=== PATIENT | female | born 2000 | race Caucasian/White ===

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

== ENCOUNTER 2023-11-04 13:58 | Emergency (ER) | payer SELFPAY ==
--- OUTSIDE RECORDS SUMMARY | 2023-11-04 14:03 | XMS REPORT | Continuity of Care Document ---
Author Name Unknown Address [address] [facility] [address] [place] [address] [facility] thconnect Address [address] [facility] [address] [place] [address] Care Team Providers Care Therapeutic Case Manager Name Role Phone Pcp, Patient Does Not Have A Primary Care Physic janie Hearingtest Attending Clinician Unavailable Shield Attending Clinician Unavailable Surinder BRISENO Attending Clinician Unavailable Jonathan PAC K Janessa Attending Clinician [phone] UNKNOWN, ATTENDING Attending Clinician Unavailab LAMONT Watts Attending Clinician Unavailable Lamont Flores MD Attending Clinician TAMMI MCDONOUGH Attending Clinician Unavailable Tammi Mcdonough MD Attending Clinician [phone] Doctor Unassigned, [place] Attending Clinician U Chuy Combs MD S Attending Clinician Leatha Cortes DO S Attending Clinician Lab, Ang - Db Attending Clinician Unavailable VALENTE ZHANG Attending Clinician Unavaila ble TRITSCHLER, CHERYAL Attending Clinician Unavaila ble Ultrasound, Ang-Mfm Attending Clinician Unavaila jo-ann Garcia MD, Karon Steel Attending Clinician + KARON GARCIA Attending Clinician Johnathon Burton MD, Yessi Giordano Attending Clinician [phone] YESSI BURTON Attending Clinician Unavailable 2, [facility] Attending Clinician Unavailable ALMA LOPEZ Attending Clinician Unavailable Alma Saez Attending Clinician [phone] JASS LEE Attending Clinician Unavaila jo-ann Lee ACNPJass Attending Clinician + [phone] RIA STEINER Attending Clinician Unavailab Ria Cardoso DO Attending Clinician [phone] SINDY NAVAS Attending Clinician Unavailable Sindy Mckay Attending Clinician [phone] Pob, [facility] Main Attending Clinician UnavailJovita Amras RN Attending Clinician Unavailable Only, Ang Db Test Attending Clinician UnavailBibiana King MD Attending Clinician [phone] BIBIANA ANN Attending Clinician Unavailable Fer Leslie MD Attending Clinician [phone] Nahum Montana CRNA Attending Clinician [phone] Suhail Thompson MD Attending Clinicia n Only, Adc Test Attending Clinician Unavailable Ultrasound, Adc Mfm Attending Clinician Unavaila Adrienne Pace MD Attending Clinician [phone] Akinsipe WHCNPNataliia Attending Clinician + Lab, Adc Fam Pob I Attending Clinician Unavailab Ceci Kunz Attending Clinician [phone] FER LESLIE Admitting Clinician Unavailable Hearingtest Admitting Clinician Unavailable Shield Admitting Clinician Unavailable LAMONT FLORES Admitting Clinician Unavailable TAMMI MCDONOUGH Admitting Clinician Unavailable Tammi Mcdonough MD Admitting Clinician [phone] ALMA LOPEZ Admitting Clinician Unavailable Leslie MD, Fer Cam Admitting Clinician [phone] Payers Payer Name Policy Type Policy Number Effective Date Expirati on Date Source [facility] SHE [id number] 2020 00:00:00 YORDAN JAVIER Akosha [id number] MEDICAID [facility] [id number] 2020 00:00:00 [employer] MEDICAID [id number] 2017 00:00:00 Problems Condition Name Condition Details Condition Category Status Onset Date Resolution Date Last Treatment Date Treating Clinician Comments Source Encounter for induction of labor Encounter for induction of labor Disease Active 08-13 00:00: 00 [facility] Liveborn , of [place] , born in hospital by vaginal delivery Liveborn , of [place] , born in hospital by vaginal delivery Disease Active 08-13 00:00: 00 [facility] Anemia affecting Anemia affecting Disease Active 08-13 00:00: 00 [facility] Choroid plexus cyst of fetus in bassett Choroid plexus cyst of fetus in bassett Disease Active 2021-06 0-06 00:00: 00 [facility] Low lying placenta nos or without hemorrhage , second trimester Low lying placenta nos or without hemorrhage , second trimester Disease Active 2021-06 0-06 00:00: 00 [facility] High-risk in third trimester High-risk in third trimester Disease Active 8-30 00:00: 00 [facility] 39 weeks gestation of 39 weeks gestation of Disease Active 2019-06 0-29 00:00: 00 [facility] No known active problems No known active problems Disease [facility] Allergies, Adverse Reactions, Alerts Allergy Name Allergy Type Status Severity Reaction(s) Onset Date Inactive Date Treating Clinician Comments Source NO KNOWN ALLERGIE S Drug Class Active [facility] Social History Social Habit Start Date Stop Date Quantity Comments Source ASSERTION 2021-11-25 00:00:00 [facility] 2023-06-18 00:00:00 2023-06-18 00:00:00 Current non-drinker of alcohol (finding) [facility] Exposure to SARS-CoV-2 (event) 2022-08-29 00:00:00 2022-09-08 13:03:00 Not sure [facility] Tobacco use and exposure 2022-01-12 00:00:00 2022-01-12 00:00:00 Smokeless tobacco non-user [facility] History of Social function 2020-12-19 00:00:00 2020-12-19 00:00:00 [facility] Sex Assigned At 2000 00:00:00 2000 00:00:00 [facility] Smoking Status Start Date Stop Date Source Never Smoker [facility] Medications Ordered Medication Name Filled Medication Name Start Date Stop Date Current Medication? Ordering Clinician Indication Dosage Frequency Signature (SIG) Comments Components Source amoxicillin amoxicillin 2022-06 00:00: 00 No amoxicilli n [facility] amoxicillin amoxicillin 2022-06 00:00: 00 No amoxicilli n [facility] amoxicillin (TRIMOX) capsule 500 mg 2022-06 21:30: 00 06-18 21:41 :00 No 500mg 500 mg, Oral, ONCE, 1 dose, On 06/18/23 at 1530, ELVIS
Re ason for Anti-Infec tive: Documented Infection< br>Documen noa Infection Site: HEENT
D uration of Therapy: 10 days [facility] amoxicillin 500 mg capsule 2022-06 00:00: 00 06-29 05:59 :00 No [id number] 500mg Take 1 capsule by mouth in the morning and 1 capsule at noon and 1 capsule in the evening. Do all this for 10 days. [facility] naproxen sodium 550 mg tablet 12-02 00:00: 00 Yes [id number] 550mg Take 1 tablet by mouth in the morning and 1 tablet in the evening. Take with meals. [facility] vits62/FA/o m3/dha/epa ( GUMMY ORAL) 08-14 12:22: 35 08-14 00:00 :00 No Take by mouth. [facility] vitamin w/FA tablet 08-14 00:00: 00 Yes [id number] 1{tbl} Take 1 tablet by mouth in the morning. [facility] docusate 100 mg capsule 08-14 00:00: 00 Yes [id number] 200mg Take 2 capsules by mouth once daily as needed for Constipati on. [facility] ferrous sulfate 325 mg (65 mg iron) tablet 08-14 00:00: 00 Yes [id number] 325mg Take 1 tablet by mouth in the morning and 1 tablet in the evening. [facility] vitamin w/FA tablet 08-14 00:00: 00 Yes [id number] 1{tbl} Take 1 tablet by mouth in the morning. [facility] HYDROcodone -acetaminop hen (NORCO 5) 5-325 mg tablet 1 tablet 08-13 18:08: 53 Yes 1{tbl} 1 tablet, Oral, Q6HPRN, Starting on Tue08/13/22 at 1208, Until Discontinu ed, Routine, Pain (scale 7-10) [facility] acetaminoph en (TYLENOL) tablet 650 mg 08-13 18:08: 53 Yes 650mg 650 mg, Oral, Q6HPRN, Starting on Tue08/13/22 at 1208, Until Discontinu ed, Routine, Pain (scale 1-3) [facility] diphenhydrA MINE (BENADRYL) tablet 25 mg 08-13 18:08: 53 Yes 25mg 25 mg, Oral, Q6HPRN, Starting on Tue08/13/22 at 1208, Until Discontinu ed, Routine, Sleep, Itching [facility] ondansetron (ZOFRAN (PF)) injection 4 mg 08-13 18:08: 53 Yes 4mg 4 mg, Slow IV Push, Q8HPRN, Starting on Tue08/13/22 at 1208, Until Discontinu ed, Routine, Nausea and Vomiting (N/V) [facility] simethicone (GAS RELIEF (SIMETHICON E)) chewable tablet 160 mg 08-13 18:08: 53 Yes 160mg 160 mg, Oral, PC+HSPRN, Starting on Tue08/13/22 at 1208, Until Discontinu ed, Routine, Gas [facility] docusate (COLACE) capsule 200 mg 08-13 18:08: 52 Yes 200mg 200 mg, Oral, QDAILYPRN, Starting on Tue08/13/22 at 1208, Until Discontinu ed, Routine, Constipati on [facility] magnesium hydroxide (MILK OF MAGNESIA) 400 mg/5 mL suspension 30 mL 08-13 18:08: 52 Yes 30mL 30 mL, Oral, QDAILYPRN, Starting on Tue08/13/22 at 1208, Until Discontinu ed, Routine, Constipati on [facility] benzocaine- menthol (DERMOPLAST ) 20-0.5 % topical spray 08-13 18:08: 52 Yes Topical, PRN, Starting on Tue08/13/22 at 1208, Until Discontinu ed, Routine, Perineum discomfort [facility] PIB fentaNYL-ro pivacaine 2 mcg/mL-0.1 % (PF) in NS 200 mL epidural infusion RTU 08-13 13:20: 00 Yes Epidural, CONTINUOUS PRN, Starting on Tue08/13/22 at 0720, Until Discontinu ed, Routine, Intra-op [facility] lidocaine 1% (XYLOCAINE) 100 mg/10 mL (1 %) injection 08-13 13:02: 00 Yes Infiltrati on, ONCE INTRA PROCEDURE, Starting on Tue08/13/22 at 0702, Until Discontinu ed, Routine, Intra-op [facility] ondansetron (ZOFRAN (PF)) injection 4 mg 08-13 07:37: 19 08-13 18:10 :15 No 4mg 4 mg, Slow IV Push, Q6HPRN, Starting on Tue08/13/22 at 0137, Until Tue08/13/22 at 1210, Routine, Nausea and Vomiting (N/V) [facility] FENTanyl PF (SUBLIMAZE (PF)) injection 100 mcg 08-13 07:37: 19 08-13 18:10 :15 No 100ug 100 mcg, Slow IV Push, Q1HPRN, Starting on Tue08/13/22 at 0137, Until Tue08/13/22 at 1210, Routine, Pain (scale 4-6), Pain (scale 7-10) [facility] oxytocin (PITOCIN) 30 units in NS 500 mL IV infusion 08-13 07:37: 19 08-13 18:10 :15 No 2mU/min at 2-40 mL/hr, IV Infusion, TITRATE, Starting on Tue08/13/22 at 0137, Until Tue08/13/22 at 1210, ELVIS [facility] lactated ringers IV infusion 500 mL 08-13 07:37: 19 08-13 18:10 :15 No 500mL at 999 mL/hr, 500 mL, IV Infusion, PRN - SEE INSTRUCTIO NS, Starting on Tue08/13/22 at 0137, Until Tue08/13/22 at 1210, Routine [facility] D5W-LR IV infusion 1,000 mL 08-13 07:37: 19 08-13 18:10 :15 No 1000mL at 1-125 mL/hr, IV Infusion, TITRATE, Starting on Tue08/13/22 at 0137, Until Tue08/13/22 at 1210, Routine [facility] vits62/FA/o m3/dha/epa ( GUMMY ORAL) 08-13 06:18: 15 Yes Take by mouth. [facility] ferrous sulfate 325 mg (65 mg iron) tablet 08-01 00:00: 00 08-14 00:00 :00 No [id number] 325mg Take 1 tablet by mouth in the morning and 1 tablet in the evening. [facility] Nitrofurant oin&Nit. Macrocryst 100 mg capsule 01-15 00:00: 00 02-23 00:00 :00 No [id number] 100mg Take 1 capsule by mouth in the morning and 1 capsule in the evening. [facility] proMETHazin e 12.5 mg tablet 01-12 00:00: 00 Yes [id number] 12.5mg Take 1 tablet by mouth every 4 (four) hours as needed for Nausea and Vomiting (N/V). [facility] ondansetron 4 mg disintegrat ing tablet 7- 00:00: 00 Yes [id number] 4mg Take 1 tablet by mouth every 8 (eight) hours as needed for Nausea and Vomiting (N/V). [facility] cephALEXin 500 mg tablet 12-11 00:00: 00 01-12 00:00 :00 No [id number] 500mg Take 1 tablet by mouth 2 (two) times daily. [facility] hydrocortis one 1 % cream 15 00:00: 00 01-12 00:00 :00 No [id number] Apply to affected area(s) 2 (two) times daily. [facility] vits62/FA/o m3/dha/epa ( GUMMY ORAL) 1-13 16:08: 30 Yes Take by mouth. [facility] ibuprofen 600 mg tablet TAKE 1 TABLET BY MOUTH EVERY 6 HOURS NEEDED FOR MODERATE PAIN ibuprofen 600 mg tablet TAKE 1 TABLET BY MOUTH EVERY 6 HOURS NEEDED FOR MODERATE PAIN No ibuprofen 600 mg tablet TAKE 1 TABLET BY MOUTH EVERY 6 HOURS NEEDED FOR MODERATE PAIN [facility] ibuprofen 600 mg tablet TAKE 1 TABLET BY MOUTH EVERY 6 HOURS NEEDED FOR MODERATE PAIN ibuprofen 600 mg tablet TAKE 1 TABLET BY MOUTH EVERY 6 HOURS NEEDED FOR MODERATE PAIN No ibuprofen 600 mg tablet TAKE 1 TABLET BY MOUTH EVERY 6 HOURS NEEDED FOR MODERATE PAIN [facility] Immunizations Ordered Immunization Name Filled Immunization Name Date Status Comments Source TD 2022-06-15 00:00:00 Completed [facility] TDAP 2022-06-15 00:00:00 Completed [facility] TDAP 2022-06-15 00:00:00 Completed [facility] TDAP 2022-06-15 00:00:00 Completed [facility] TDAP 2022-06-15 00:00:00 Completed [facility] TDAP 2022-06-15 00:00:00 Completed [facility] TDAP 2022-06-15 00:00:00 Completed [facility] TDAP 2022-06-15 00:00:00 Completed [facility] TDAP 2022-06-15 00:00:00 Completed [facility] TDAP 2022-06-15 00:00:00 Completed [facility] TDAP 2022-06-15 00:00:00 Completed [facility] TDAP 2022-06-15 00:00:00 Completed [facility] TDAP 2022-06-15 00:00:00 Completed [facility] TDAP 2022-06-15 00:00:00 Completed [facility] TDAP 2022-06-15 00:00:00 Completed [facility] TDAP 2022-06-15 00:00:00 Completed [facility] TDAP 2022-06-15 00:00:00 Completed [facility] TDAP 2022-06-15 00:00:00 Completed [facility] TDAP 2022-06-15 00:00:00 Completed [facility] TDAP 2022-06-15 00:00:00 Completed [facility] TDAP 2022-06-15 00:00:00 Completed [facility] TDAP 2022-06-15 00:00:00 Completed [facility] Influenza Virus Vaccine Quad IM, Preserv and ABX Free 6 MO-64 YRS 2022-04-01 00:00:00 Completed [facility] Influenza Virus Vaccine Quad IM, Preserv and ABX Free 6 MO-64 YRS 2022-04-01 00:00:00 Completed [facility] Influenza Virus Vaccine Quad IM, Preserv and ABX Free 6 MO-64 YRS 2022-04-01 00:00:00 Completed [facility] Influenza Virus Vaccine Quad IM, Preserv and ABX Free 6 MO-64 YRS 2022-04-01 00:00:00 Completed [facility] Influenza Virus Vaccine Quad IM, Preserv and ABX Free 6 MO-64 YRS 2022-04-01 00:00:00 Completed [facility] Influenza Virus Vaccine Quad IM, Preserv and ABX Free 6 MO-64 YRS 2022-04-01 00:00:00 Completed [facility] Influenza Virus Vaccine Quad IM, Preserv and ABX Free 6 MO-64 YRS 2022-04-01 00:00:00 Completed [facility] Influenza Virus Vaccine Quad IM, Preserv and ABX Free 6 MO-64 YRS 2022-04-01 00:00:00 Completed [facility] Influenza Virus Vaccine Quad IM, Preserv and ABX Free 6 MO-64 YRS 2022-04-01 00:00:00 Completed [facility] Influenza Virus Vaccine Quad IM, Preserv and ABX Free 6 MO-64 YRS 2022-04-01 00:00:00 Completed [facility] Influenza Virus Vaccine Quad IM, Preserv and ABX Free 6 MO-64 YRS 2022-04-01 00:00:00 Completed [facility] Influenza Virus Vaccine Quad IM, Preserv and ABX Free 6 MO-64 YRS 2022-04-01 00:00:00 Completed [facility] Influenza Virus Vaccine Quad IM, Preserv and ABX Free 6 MO-64 YRS 2022-04-01 00:00:00 Completed [facility] Influenza Virus Vaccine Quad IM, Preserv and ABX Free 6 MO-64 YRS 2022-04-01 00:00:00 Completed [facility] Influenza Virus Vaccine Quad IM, Preserv and ABX Free 6 MO-64 YRS 2022-04-01 00:00:00 Completed [facility] Influenza Virus Vaccine Quad IM, Preserv and ABX Free 6 MO-64 YRS 2022-04-01 00:00:00 Completed [facility] Influenza Virus Vaccine Quad IM, Preserv and ABX Free 6 MO-64 YRS 2022-04-01 00:00:00 Completed [facility] Influenza Virus Vaccine Quad IM, Preserv and ABX Free 6 MO-64 YRS 2022-04-01 00:00:00 Completed [facility] Influenza Virus Vaccine Quad IM, Preserv and ABX Free 6 MO-64 YRS 2022-04-01 00:00:00 Completed [facility] Influenza Virus Vaccine Quad IM, Preserv and ABX Free 6 MO-64 YRS 2022-04-01 00:00:00 Completed [facility] Influenza Virus Vaccine Quad IM, Preserv and ABX Free 6 MO-64 YRS 2022-04-01 00:00:00 Completed [facility] Influenza Virus Vaccine Quad IM, Preserv and ABX Free 6 MO-64 YRS 2022-04-01 00:00:00 Completed [facility] Influenza Virus Vaccine Quad IM, Preserv and ABX Free 6 MO-64 YRS 2022-04-01 00:00:00 Completed [facility] Influenza Virus Vaccine Quad IM, Preserv and ABX Free 6 MO-64 YRS 2022-04-01 00:00:00 Completed [facility] Influenza Virus Vaccine Quad IM, Preserv and ABX Free 6 MO-64 YRS 2022-04-01 00:00:00 Completed [facility] Influenza Virus Vaccine Quad IM, Preserv and ABX Free 6 MO-64 YRS 2022-04-01 00:00:00 Completed [facility] Influenza Virus Vaccine Quad IM, Preserv and ABX Free 6 MO-64 YRS 2022-04-01 00:00:00 Completed [facility] Influenza Virus Vaccine Quad IM, Preserv and ABX Free 6 MO-64 YRS 2022-04-01 00:00:00 Completed [facility] TDAP 2020-08-22 00:00:00 Completed [facility] TDAP 2020-08-22 00:00:00 Completed [facility] TDAP 2020-08-22 00:00:00 Completed [facility] TDAP 2020-08-22 00:00:00 Completed [facility] TDAP 2020-08-22 00:00:00 Completed [facility] TDAP 2020-08-22 00:00:00 Completed [facility] TDAP 2020-08-22 00:00:00 Completed [facility] TDAP 2020-08-22 00:00:00 Completed [facility] TDAP 2020-08-22 00:00:00 Completed [facility] TDAP 2020-08-22 00:00:00 Completed [facility] TDAP 2020-08-22 00:00:00 Completed [facility] TDAP 2020-08-22 00:00:00 Completed [facility] TDAP 2020-08-22 00:00:00 Completed [facility] TDAP 2020-08-22 00:00:00 Completed [facility] TDAP 2020-08-22 00:00:00 Completed [facility] TDAP 2020-08-22 00:00:00 Completed [facility] TDAP 2020-08-22 00:00:00 Completed [facility] TDAP 2020-08-22 00:00:00 Completed [facility] TDAP 2020-08-22 00:00:00 Completed [facility] TDAP 2020-08-22 00:00:00 Completed [facility] TDAP 2020-08-22 00:00:00 Completed [facility] TDAP 2020-08-22 00:00:00 Completed [facility] TDAP 2020-08-22 00:00:00 Completed [facility] TDAP 2020-08-22 00:00:00 Completed [facility] TDAP 2020-08-22 00:00:00 Completed [facility] TDAP 2020-08-22 00:00:00 Completed [facility] TDAP 2020-08-22 00:00:00 Completed [facility] TDAP 2020-08-22 00:00:00 Completed [facility] TDAP 2020-08-22 00:00:00 Completed [facility] TDAP 2020-08-22 00:00:00 Completed [facility] TDAP 2020-08-22 00:00:00 Completed [facility] TDAP 2020-08-22 00:00:00 Completed [facility] TDAP 2020-08-22 00:00:00 Completed [facility] TDAP 2020-08-22 00:00:00 Completed [facility] Influenza Virus Vaccine Quad .5 mL IM 6+ MO 2020-04-22 00:00:00 Completed [facility] Influenza Virus Vaccine Quad .5 mL IM 6+ MO 2020-04-22 00:00:00 Completed [facility] Influenza Virus Vaccine Quad .5 mL IM 6+ MO 2020-04-22 00:00:00 Completed [facility] Influenza Virus Vaccine Quad .5 mL IM 6+ MO 2020-04-22 00:00:00 Completed [facility] Influenza Virus Vaccine Quad .5 mL IM 6+ MO 2020-04-22 00:00:00 Completed [facility] Influenza Virus Vaccine Quad .5 mL IM 6+ MO 2020-04-22 00:00:00 Completed [facility] Influenza Virus Vaccine Quad .5 mL IM 6+ MO 2020-04-22 00:00:00 Completed [facility] Influenza Virus Vaccine Quad .5 mL IM 6+ MO 2020-04-22 00:00:00 Completed [facility] Influenza Virus Vaccine Quad .5 mL IM 6+ MO 2020-04-22 00:00:00 Completed [facility] Influenza Virus Vaccine Quad .5 mL IM 6+ MO 2020-04-22 00:00:00 Completed [facility] Influenza Virus Vaccine Quad .5 mL IM 6+ MO 2020-04-22 00:00:00 Completed [facility] Influenza Virus Vaccine Quad .5 mL IM 6+ MO 2020-04-22 00:00:00 Completed [facility] Influenza Virus Vaccine Quad .5 mL IM 6+ MO 2020-04-22 00:00:00 Completed [facility] Influenza Virus Vaccine Quad .5 mL IM 6+ MO 2020-04-22 00:00:00 Completed [facility] Influenza Virus Vaccine Quad .5 mL IM 6+ MO 2020-04-22 00:00:00 Completed [facility] Influenza Virus Vaccine Quad .5 mL IM + MO 2020-04-22 00:00:00 Completed [facility] Influenza Virus Vaccine Quad .5 mL IM 6+ MO 2020-04-22 00:00:00 Completed [facility] Influenza Virus Vaccine Quad .5 mL IM 6+ MO 2020-04-22 00:00:00 Completed [facility] Influenza Virus Vaccine Quad .5 mL IM 6+ MO 2020-04-22 00:00:00 Completed [facility] Influenza Virus Vaccine Quad .5 mL IM 6+ MO 2020-04-22 00:00:00 Completed [facility] Influenza Virus Vaccine Quad .5 mL IM 6+ MO 2020-04-22 00:00:00 Completed [facility] Influenza Virus Vaccine Quad .5 mL IM 6+ MO 2020-04-22 00:00:00 Completed [facility] Influenza Virus Vaccine Quad .5 mL IM 6+ MO 2020-04-22 00:00:00 Completed [facility] Influenza Virus Vaccine Quad .5 mL IM 6+ MO 2020-04-22 00:00:00 Completed [facility] Influenza Virus Vaccine Quad .5 mL IM 6+ MO 2020-04-22 00:00:00 Completed [facility] Influenza Virus Vaccine Quad .5 mL IM 6+ MO 2020-04-22 00:00:00 Completed [facility] Influenza Virus Vaccine Quad .5 mL IM 6+ MO 2020-04-22 00:00:00 Completed [place] [facility] Influenza Virus Vaccine Quad .5 mL IM 6+ MO 2020-04-22 00:00:00 Completed [facility] Influenza Virus Vaccine Quad .5 mL IM 6+ MO 2020-04-22 00:00:00 Completed [facility] Influenza Virus Vaccine Quad .5 mL IM 6+ MO 2020-04-22 00:00:00 Completed [facility] Influenza Virus Vaccine Quad .5 mL IM 6+ MO 2020-04-22 00:00:00 Completed [facility] Influenza Virus Vaccine Quad .5 mL IM 6+ MO 2020-04-22 00:00:00 Completed [facility] Influenza Virus Vaccine Quad .5 mL IM 6+ MO 2020-04-22 00:00:00 Completed [facility] Influenza Virus Vaccine Quad .5 mL IM 6+ MO 2020-04-22 00:00:00 Completed [facility] Influenza Virus Vaccine Quad .5 mL IM 6+ MO (FLUZONE/FLULAVAL/F LUARIX) Unknown Completed [facility] Influenza Virus Vaccine Quad .5 mL IM 6+ MO (FLUZONE/FLULAVAL/F LUARIX) Unknown Completed [facility] TDAP Unknown Completed [facility] Influenza Virus Vaccine Quad IM, Preserv and ABX Free 6 MO-64 YRS (FLUCELVAX) Unknown Completed [facility] TDAP Unknown Completed [facility] Vital Signs Vital Name Observation Time Observation Value Comments S ource BP Systolic 2023-06-23 00:00:00 108 mm[Hg] [facility] Height 2023-06-23 00:00:00 71 [in_i] [facility] BP Diastolic 2023-06-23 00:00:00 67 mm[Hg] [facility] BMI (Body Mass Index) 2023-06-23 00:00:00 15.2 kg/m2 [facility] Body Weight 2023-06-23 00:00:00 1745 [oz_av] [facility] Systolic blood pressure 2023-06-18 20:54:00 125 mm[Hg] [facility] Diastolic blood pressure 2023-06-18 20:54:00 78 mm[Hg] [facility] Heart rate 2023-06-18 20:54:00 76 /min [facility] Body temperature 2023-06-18 20:54:00 37.28 Eda [facility] Respiratory rate 2023-06-18 20:54:00 16 /min [facility] Body height 2023-06-18 20:54:00 154.9 cm [facility] Body weight 2023-06-18 20:54:00 49.896 kg [facility] BMI 2023-06-18 20:54:00 20.78 kg/m2 [facility] Oxygen saturation in Arterial blood by Pulse oximetry 2023-06-18 20:54:00 100 /min [facility] Systolic blood pressure 2022-12-03 05:30:00 121 mm[Hg] [facility] Diastolic blood pressure 2022-12-03 05:30:00 65 mm[Hg] [facility] Heart rate 2022-12-03 05:30:00 94 /min [facility] Respiratory rate 2022-12-03 05:30:00 20 /min [facility] Oxygen saturation in Arterial blood by Pulse oximetry 2022-12-03 05:30:00 98 /min [facility] Body temperature 2022-12-03 02:14:00 37.39 Eda [facility] Body height 2022-12-03 02:14:00 154.9 cm [facility] Body weight 2022-12-03 02:14:00 49.442 kg [facility] BMI 2022-12-03 02:14:00 20.60 kg/m2 [facility] Systolic blood pressure 2022-09-08 18:25:00 101 mm[Hg] [facility] Diastolic blood pressure 2022-09-08 18:25:00 66 mm[Hg] [facility] Heart rate 2022-09-08 18:25:00 97 /min [facility] Body temperature 2022-09-08 18:25:00 36.67 Eda [facility] Body height 2022-09-08 18:25:00 154.9 cm [facility] weight 2022-09-08 18:25:00 49.442 kg [facility] BMI 2022-09-08 18:25:00 20.60 kg/m2 [facility] Systolic blood pressure 2022-08-14 22:23:00 116 mm[Hg] [facility] Diastolic blood pressure 2022-08-14 22:23:00 75 mm[Hg] [facility] Heart rate 2022-08-14 22:23:00 86 /min [facility] Body temperature 2022-08-14 22:23:00 36.83 Eda [facility] Respiratory rate 2022-08-14 22:23:00 18 /min [facility] Oxygen saturation in Arterial blood by Pulse oximetry 2022-08-14 22:23:00 100 /min [facility] Body height 2022-08-13 07:52:00 154.9 cm [facility] Body weight 2022-08-13 07:52:00 55.339 kg [facility] BMI 2022-08-13 07:52:00 23.05 kg/m2 [facility] Systolic blood pressure 2022-08-10 14:43:00 112 mm[Hg] [facility] Diastolic blood pressure 2022-08-10 14:43:00 73 mm[Hg] [facility] Heart rate 2022-08-10 14:43:00 86 /min [facility] [place] Body temperature 2022-08-10 14:43:00 36.78 Eda [facility] Respiratory rate 2022-08-10 14:43:00 18 /min [facility] Body height 2022-08-10 14:43:00 154.9 cm [facility] Body weight 2022-08-10 14:43:00 54.885 kg [facility] BMI 2022-08-10 14:43:00 22.86 kg/m2 [facility] Systolic blood pressure 2022-08-04 19:10:00 109 mm[Hg] [facility] Diastolic blood pressure 2022-08-04 19:10:00 72 mm[Hg] [facility] Heart rate 2022-08-04 19:10:00 80 /min [facility] Body temperature 2022-08-04 19:10:00 36.78 Eda [facility] Respiratory rate 2022-08-04 19:10:00 18 /min [facility] Body height 2022-08-04 19:10:00 154.9 cm [facility] Body weight 2022-08-04 19:10:00 55.566 kg [facility] BMI 2022-08-04 19:10:00 23.15 kg/m2 [facility] Systolic blood pressure 2022-07-28 17:27:00 117 mm[Hg] [facility] Diastolic blood pressure 2022-07-28 17:27:00 70 mm[Hg] [facility] Heart rate 2022-07-28 17:27:00 100 /min [facility] Body temperature 2022-07-28 17:27:00 36.72 Eda [facility] Respiratory rate 2022-07-28 17:27:00 18 /min [facility] Body height 2022-07-28 17:27:00 154.9 cm [facility] Body weight 2022-07-28 17:27:00 57.561 kg [facility] BMI 2022-07-28 17:27:00 23.98 kg/m2 [facility] Systolic blood pressure 2022-07-13 19:01:00 113 mm[Hg] [facility] Diastolic blood pressure 2022-07-13 19:01:00 75 mm[Hg] [facility] Heart rate 2022-07-13 19:01:00 103 /min [facility] Body temperature 2022-07-13 19:01:00 36.72 Eda [facility] Respiratory rate 2022-07-13 19:01:00 18 /min [facility] Body height 2022-07-13 19:01:00 154.9 cm [facility] Body weight 2022-07-13 19:01:00 55.339 kg [facility] BMI 2022-07-13 19:01:00 23.05 kg/m2 [facility] Systolic blood pressure 2022-06-29 16:44:00 118 mm[Hg] [facility] Diastolic blood pressure 2022-06-29 16:44:00 75 mm[Hg] [facility] Heart rate 2022-06-29 16:44:00 102 /min [facility] Body temperature 2022-06-29 16:44:00 36.61 Eda [facility] Respiratory rate 2022-06-29 16:44:00 18 /min [facility] Body height 2022-06-29 16:44:00 154.9 cm [facility] Body weight 2022-06-29 16:44:00 55.157 kg [facility] BMI 2022-06-29 16:44:00 22.98 kg/m2 [facility] Systolic blood pressure 2022-06-15 16:58:00 124 mm[Hg] [facility] Diastolic blood pressure 2022-06-15 16:58:00 74 mm[Hg] [facility] Heart rate 2022-06-15 16:58:00 102 /min [facility] Body temperature 2022-06-15 16:58:00 36.56 Eda [facility] Respiratory rate 2022-06-15 16:58:00 18 /min [facility] Body height 2022-06-15 16:58:00 154.9 cm [facility] Body weight 2022-06-15 16:58:00 54.885 kg [facility] BMI 2022-06-15 16:58:00 22.86 kg/m2 [facility] Systolic blood pressure 2022-06-01 19:37:00 108 mm[Hg] [facility] Diastolic blood pressure 2022-06-01 19:37:00 63 mm[Hg] [facility] Heart rate 2022-06-01 19:37:00 102 /min [facility] Body temperature 2022-06-01 19:37:00 36.89 Eda [facility] Respiratory rate 2022-06-01 19:37:00 16 /min [facility] Body height 2022-06-01 19:37:00 154.9 cm [facility] Body weight 2022-06-01 19:37:00 53.479 kg [facility] BMI 2022-06-01 19:37:00 22.28 kg/m2 [facility] Oxygen saturation in Arterial blood by Pulse oximetry 2022-06-01 19:37:00 99 /min [facility] Systolic blood pressure 2022-04-01 19:07:00 99 mm[Hg] [facility] Diastolic blood pressure 2022-04-01 19:07:00 65 mm[Hg] [facility] Heart rate 2022-04-01 19:07:00 99 /min [facility] [place] [facility] Body temperature 2022-04-01 19:07:00 36.78 Eda [facility] Respiratory rate 2022-04-01 19:07:00 16 /min [facility] Body height 2022-04-01 19:07:00 154.9 cm [facility] Body weight 2022-04-01 19:07:00 49.805 kg [facility] BMI 2022-04-01 19:07:00 20.75 kg/m2 [facility] Systolic blood pressure 2022-02-23 14:56:00 105 mm[Hg] [facility] Diastolic blood pressure 2022-02-23 14:56:00 68 mm[Hg] [facility] Heart rate 2022-02-23 14:56:00 89 /min [facility] Body temperature 2022-02-23 14:56:00 36.78 Eda [facility] Respiratory rate 2022-02-23 14:56:00 18 /min [facility] Body height 2022-02-23 14:56:00 154.9 cm [facility] Body weight 2022-02-23 14:56:00 49.442 kg [facility] BMI 2022-02-23 14:56:00 20.60 kg/m2 [facility] Systolic blood pressure 2022-01-12 15:55:00 107 mm[Hg] [facility] Diastolic blood pressure 2022-01-12 15:55:00 67 mm[Hg] [facility] Heart rate 2022-01-12 15:55:00 88 /min [facility] Body temperature 2022-01-12 15:55:00 36.83 Eda [facility] Respiratory rate 2022-01-12 15:55:00 16 /min [facility] Body height 2022-01-12 15:55:00 154.9 cm [facility] Body weight 2022-01-12 15:55:00 49.351 kg [facility] BMI 2022-01-12 15:55:00 20.56 kg/m2 [facility] Procedures Procedure Date / Time Performed Performing Clinician Source ASSIGNMENT OF BENEFITS 2023-06-18 21:30:03 Docto r Unassigned, [place] [facility] CONSENT/REFUSAL FOR DIAGNOSIS AND TREATMENT 2023-06-18 20:47:24 Doctor Unassigned, [place] [facility] ASSIGNMENT OF BENEFITS 2022-12-03 04:38:15 Docto r Unassigned, [place] [facility] XR CHEST 1 VW 2022-12-03 04:29:27 Lamont Flores Uni [facility] POCT TEST 2022-12-03 04:03:00 Lamont Flores [facility] URINALYSIS 2022-12-03 03:59:00 Lamont Flores [facility] CONSENT/REFUSAL FOR DIAGNOSIS AND TREATMENT 2022-12-03 02:02:23 Doctor Unassigned, [place] [facility] PATIENT FINANCIAL POLICY 2022-09-08 18:03:46 Doctor Unassigned, [place] [facility] CBC WITH DIFF 2022-08-14 10:08:00 Adum, Tammi Nieves [facility] CENTRAL NEURAXIAL BLOCK 2022-08-13 12:57:00 Clayton Marie [facility] HB ABO GROUPING 2022-08-13 08:13:00 Adum, Tammi Silva [facility] CBC WITH DIFF 2022-08-13 08:02:00 Adum, Tammi Nieves [facility] HEPATITIS B SURFACE ANTIGEN 2022-08-13 08:02:00 Adum, Tammi Alarcon [facility] RPR (QUANTITATIVE) 2022-08-13 08:02:00 Adum, Tammi Alarcon [facility] HIV 1/2 AG-AB WITH REFLEX 2022-08-13 08:02:00 Adum, Tammi Alarcon [facility] NOTICE OF PRIVACY PRACTICES 2022-08-11 15:46:11 Doctor Unassigned, [place] [facility] CONSENT/REFUSAL FOR DIAGNOSIS AND TREATMENT 2022-08-11 15:42:11 Doctor Unassigned, [place] [facility] ASSIGNMENT OF BENEFITS 2022-08-11 15:41:53 Docto r Unassigned, [place] [facility] BIOPHYSICAL PROFILE 2022-08-10 15:56:53 Adum, Tammi Alarcon [facility] POCT URINALYSIS W/O SPECIFIC GRAVITY 2022-08-10 00:00:00 Adum, Tammi Alarcon [facility] POCT URINALYSIS W/O SPECIFIC GRAVITY 2022-08-04 00:00:00 Adum, Tammi Alarcon [facility] CBC WITH DIFF 2022-07-29 14:01:00 Adum, Tammi Nieves [facility] >14 WEEKS US LIMITED 2022-07-28 17:49:12 Adum, Tammi Alarcon [facility] DSU PRE-OP 2022-07-28 06:01:00 Doctor Unass igned, [place] [facility] POCT URINALYSIS W/O SPECIFIC GRAVITY 2022-07-28 00:00:00 Adum, Tammi Alarcon [facility] POCT URINALYSIS W/O SPECIFIC GRAVITY 2022-07-13 00:00:00 Adum, Tammi Alarcon [facility] POCT URINALYSIS W/O SPECIFIC GRAVITY 2022-06-29 00:00:00 EmeryKathleenchris [facility] TDAP VACCINE, >11 YRS, IM 2022-06-15 17:00:13 Adum, Tammi Alarcon [facility] POCT URINALYSIS W/O SPECIFIC GRAVITY 2022-06-15 00:00:00 Adum, Tammi Alarcon [facility] CONSENT/REFUSAL FOR DIAGNOSIS AND TREATMENT 2022-06-01 18:45:09 Doctor Unassigned, [place] [facility] ASSIGNMENT OF BENEFITS 2022-06-01 18:44:52 Docto r Unassigned, [place] [facility] POCT URINALYSIS W/O SPECIFIC GRAVITY 2022-06-01 00:00:00 Adum, Tammi Alarcon [facility] FLU VACC (), 6 MO-64 YRS, .5ML, IM, QUAD (FLUCELVAX) 2022-04-01 19:52:51 Adum, Tammi Alarcon [facility] POCT URINALYSIS W/O SPECIFIC GRAVITY 2022-04-01 19:12:00 Adum, Tammi Alarcon [facility] SCANNED LAB RESULTS 2022-02-26 05:01:00 Doctor U nassigned, [place] [facility] POCT URINALYSIS W/O SPECIFIC GRAVITY 2022-02-23 14:52:00 Adum, Tammi Alarcon [facility] <14 WEEKS US LIMITED 2022-01-12 17:07:48 Adum, Tammi Alarcon [facility] URINE CULTURE 2022-01-12 16:51:00 Adum, Tammi Nieves [facility] LAB ONLY PAP SMEAR-LIQUID BASED 2022-01-12 16:51:00 AdumTammi [facility] PAP SMEAR-LIQUID BASED-CP 2022-01-12 16:51:00 Adum, Tammi Alarcon [facility] POCT URINALYSIS W/O SPECIFIC GRAVITY 2022-01-12 00:00:00 Adum, Tammi Alarcon [facility] Plan of Care Planned Activity Planned Date Details Comments Source Diagnostic Test Pending 2023-06-23 00:00:00 drug screen, 14 drugs (detectimed), urine [code = drug screen, 14 drugs (detectimed), urine] [facility] Instructions [facility] Encounters Start Date/Time End Date/Time Encounter Type Admission Type Attending Clinicians Care Facility Care Department Encounter ID Source 2021-04-26 17:43:19 Outpatient [facility]Y [id number] [facility] 2023-06-24 00:00:00 2023-06-24 00:00:00 Outpatient Hearingtest [facility]G [id number] [id number] 2023-06-23 00:00:00 2023-06-23 00:00:00 Outpatient Shield MMG [id number] [id number] 2023-06-23 00:00:00 2023-06-23 00:00:00 Camelia Giles, KNIFE GRINDER: [address], [address], [place] [address] , Ph. MM[facility] [place] [facility] [id number] [facility] 2023-06-21 00:00:00 2023-06-21 00:00:00 Outpatient Shield MMG [id number] [facility] 2023-06-18 14:58:00 2023-06-18 15:52:00 Emergency X Surinder BRISENO [facility] ERT [id number] [facility] 2023-06-18 14:58:00 2023-06-18 15:52:00 Emergency Surinder Briseno [facility] 1.2.840.114 350.1.13.10 4.2.7.2.686 [id number] [facility] 2023-02-11 18:15:00 2023-02-11 18:15:00 Outpatient R UNKNOWN, ATTENDING [facility] [id number] [facility] 2022-12-02 21:18:00 2022-12-03 00:30:00 Emergency X LAMONT FLORES [facility] ERT [id number] [facility] 2022-12-02 21:18:00 2022-12-03 00:30:00 Emergency Lamont Flores S [facility] 1.840.114 350.1.13.10 4.2.7.2.686 [id number] [facility] 2022-10-08 10:00:00 2022-10-08 10:00:00 Outpatient R ADDAYNA, TAMMI [facility] [id number] [facility] 2022-09-08 13:15:00 2022-09-08 13:41:24 [id number] 2022-09-08 13:15:00 2022-09-08 13:41:24 Routine Visit Tammi Mcdonough [facility] 1.84.114 350.1.13.10 4.2.7.2.686 [id number] [facility] 2022-09-08 00:00:00 2022-09-08 00:00:00 Orders Only Doctor Unassigned, [place] [facility] 1.84.114 350.1.13.10 4.2.7.2.686 [id number] [facility] 2022-08-13 01:35:00 2022-08-14 17:15:00 Inpatient P ADTAMMI MCINTOSH [facility] ALLY [id number] [facility] 2022-08-13 01:35:00 2022-08-14 17:15:00 Hospital Encounter AdTammi mcintosh [facility] 1.2.840.114 350.1.13.10 4.2.7.2.686 [id number] [facility] 2022-08-13 06:57:00 2022-08-14 08:49:00 Anesthesia Event Chyu Mejias Timmayte [facility] 1.2.840.114 350.1.13.10 4.2.7.2.686 [id number] [facility] 2022-08-13 06:50:09 2022-08-13 06:50:09 Anesthesia Event Chuy Mejias [facility] 1.2.840.114 350.1.13.10 4.2.7.2.686 [id number] [facility] 2022-08-10 08:30:00 2022-08-10 09:58:34 Outpatient R ADDAYNA [facility] [id number] [facility] 2022-08-10 08:30:00 2022-08-10 09:58:34 Routine Visit Ad [facility] 1.2.840.114 350.1.13.10 4.2.7.2.686 [id number] [facility] 2022-08-04 13:15:00 2022-08-04 13:44:03 Outpatient R ADUM [facility] [id number] [facility] 2022-08-04 13:15:00 2022-08-04 13:44:03 Routine Visit Ad [facility] 1.2.840.114 350.1.13.10 4.2.7.2.686 [id number] [facility] 2022-08-01 00:00:00 2022-08-01 00:00:00 Case Management [facility] 1..840.114 350.1.13.10 4.2.7.2.686 [id number] [facility] 2022-07-29 08:00:00 2022-07-29 08:10:06 Hiv/Aids Care Nurse Visit Lab, Kendall - Adair Adum, [facility] 1.840.114 350.1.13.10 4.2.7.2.686 [id number] [facility] 2022-07-29 08:00:00 2022-07-29 08:00:00 Outpatient R ADDAYNA, [facility] [id number] [facility] 2022-07-28 11:15:00 2022-07-28 11:30:00 Routine Visit Addayna [facility] 1.840.114 350.1.13.10 4.2.7.2.686 [id number] [facility] 2022-07-28 11:15:00 2022-07-28 11:15:00 Outpatient R ADUM, [facility] [id number] [facility] 2022-07-28 00:00:00 2022-07-28 00:00:00 Orders Only Doctor Unassigned, [place] [facility] 1.840.114 350.1.13.10 4.2.7.2.686 [id number] [facility] 2022-07-13 13:00:00 2022-07-13 13:10:27 Outpatient R ADDAYNA, [facility] [id number] [facility] 2022-07-13 13:00:00 2022-07-13 13:10:27 Routine Visit Ad [facility] 1.114 350.1.13.10 4.2.7.2.686 [id number] [facility] 2022-06-29 11:00:00 2022-06-29 11:03:52 Outpatient R ANAISVALENTE GEORGE ANAISARIEL VALENTE [facility] [id number] [facility] 2022-06-29 11:00:00 2022-06-29 11:03:52 Routine Visit Valente Zhang Viv[facility] 1.84.114 350.1.13.10 4.2.7.2.686 [id number] [facility] 2022-06-23 08:00:00 2022-06-23 08:28:04 Hiv/Aids Care Nurse Visit Ultrasound, Karon Kaur [facility] LICENSED NURSING ASSISTANT [facility] 1.84.114 350.1.13.10 4.2.7.2.686 [id number] [facility] 2022-06-23 08:00:00 2022-06-23 08:00:00 Outpatient P RADHASILVIOJovany [facility] [id number] [facility] 2022-06-15 11:15:00 2022-06-15 11:16:21 [id number] 2022-06-15 11:15:00 2022-06-15 11:16:21 Routine Visit Sharonda [facility] 1.84114 350.1.13.10 4.2.7.2.686 [id number] [facility] 2022-06-11 08:30:00 2022-06-11 10:19:51 Hiv/Aids Care Nurse Visit Lab, Kendall Mcdonough [facility] 1.2.840.114 350.1.13.10 4.2.7.2.686 [id number] [facility] 2022-06-11 08:30:00 2022-06-11 08:30:00 Outpatient R ADUM, [facility] [id number] [facility] 2022-06-09 00:00:00 2022-06-09 00:00:00 Case Management Adum, [facility] 1.114 350.1.13.10 4.2.7.2.686 [id number] [facility] 2022-06-08 08:30:00 2022-06-08 09:36:03 Hiv/Aids Care Nurse Visit Lab, Ang - Db [facility]dayna[facility] 1.114 350.1.13.10 4.2.7.2.686 [id number] [facility] 2022-06-08 08:30:00 2022-06-08 08:30:00 Outpatient R ADUM, [facility] [id number] [facility] 2022-06-01 13:15:00 2022-06-01 13:57:07 Outpatient R ADUM, [facility] [id number] [facility] 2022-06-01 13:15:00 2022-06-01 13:57:07 Routine Visit Addayna, [facility] 1.114 350.1.13.10 4.2.7.2.686 [id number] [facility] 2022-06-01 00:00:00 2022-06-01 00:00:00 Orders Only Doctor Unassigned, [place] [facility] 1.114 350.1.13.10 4.2.7.2.686 [id number] [facility] 2022-04-29 16:00:00 2022-04-29 16:00:00 Outpatient R ADUM, [facility] [id number] [facility] 2022-04-01 14:00:00 2022-04-01 14:52:44 Outpatient R ADUM, [facility] [id number] [facility] 2022-04-01 14:00:00 2022-04-01 14:52:44 Routine Visit Adum, [facility] 1.2.840.114 350.1.13.10 4.2.7.2.686 [id number] [facility] 2022-03-31 09:30:00 2022-03-31 10:30:00 Hiv/Aids Care Nurse Visit Ultrasound, Yessi Yun [facility] LICENSED NURSING ASSISTANT [facility] 1.2.840.114 350.1.13.10 4.2.7.2.686 [id number] [facility] 2022-03-31 09:30:00 2022-03-31 09:30:00 Outpatient YESSI RAE [facility] [id number] [facility] 2022-03-23 09:30:00 2022-03-23 09:30:00 Outpatient R ADUM, [facility] [id number] [facility] 2022-03-09 00:00:00 2022-03-09 00:00:00 Telephone Adum, [facility] BUILDING 1.2.840.114 350.1.13.10 4.2.7.2.686 [id number] [facility] 2022-02-26 09:30:00 2022-02-26 09:45:00 Hiv/Aids Care Nurse Visit 2, [facility] 1.2.840.114 350.1.13.10 4.2.7.2.686 [id number] [facility] 2022-02-26 09:30:00 2022-02-26 09:30:00 Outpatient R ADDAYNATAMMI [facility] [id number] [facility] 2022-02-26 00:00:00 2022-02-26 00:00:00 Orders Only Doctor Unassigned, [facility] 1.84.114 350.1.13.10 4.2.7.2.686 [id number] [facility] 2022-02-23 09:15:00 2022-02-23 10:18:37 Outpatient R ADDAYNA, [facility] [id number] [facility] 2022-02-23 09:15:00 2022-02-23 10:18:37 Routine Visit Addayna, [facility] 1.840.114 350.1.13.10 4.2.7.2.686 [id number] [facility] 2022-02-09 08:30:00 2022-02-09 08:30:00 Outpatient R ADUM, [facility] [id number] [facility] 2022-01-15 00:00:00 2022-01-15 00:00:00 Case Management Addayna, [facility] 1.840.114 350.1.13.10 4.2.7.2.686 [id number] 134 [id number] [facility] 2022-01-13 09:15:00 2022-01-13 09:30:00 Hiv/Aids Care Nurse Visit 2, Adc Lab Addayna, [facility] 1..840.114 350.1.13.10 4.2.7.2.686 [id number] [facility] 2022-01-13 09:15:00 2022-01-13 09:15:00 Outpatient R ADUM, TAMMI [facility] [id number] [facility] 2022-01-12 10:30:00 2022-01-12 11:44:17 Outpatient R ADUM, [facility] [id number] [facility] 2022-01-12 10:30:00 2022-01-12 11:44:17 Initial Visit [facility]amm[facility]on[facility] 1..840.114 350.1.13.10 4.2.7.2.686 [id number] [facility] 2022-01-12 10:30:00 2022-01-12 11:44:17 Outpatient R ADUM [facility] [id number] [facility] 2022-01-12 10:30:00 2022-01-12 10:30:00 Outpatient R ADUM, [facility] [id number] [facility] 2022-01-12 00:00:00 2022-01-12 00:00:00 Orders Only Doctor Unassigned, [facility] 1..840.114 350.1.13.10 4.2.7.2.686 [id number] [facility] 2021-12-27 17:48:00 2021-12-27 19:59:00 Emergency X ALMA LOPEZ [facility] ERT [id number] [facility] 2021-12-27 17:48:00 2021-12-27 19:59:00 Emergency Alma Lopez [facility] 1.840.114 350.1.13.10 4.2.7.2.686 [id number] [facility] 2021-12-11 19:22:00 2021-12-11 20:55:00 Emergency X JASS LEE [facility] ERT [id number] [facility] 2021-12-11 19:22:00 2021-12-11 20:55:00 Emergency Jass Lee [facility] 1.2840.114 350.1.13.10 4.2.7.2.686 [id number] [facility] 2021-12-09 13:06:00 2021-12-09 13:09:00 Emergency X RIA STEINER [facility] ERT [id number] [facility] 2021-12-09 13:06:00 2021-12-09 13:09:00 Emergency X JATINSEBLERA [facility] ERT [id number] [facility] 2021-12-09 13:06:00 2021-12-09 13:09:00 Emergency Jatin Ria Sue [facility] 1.2840.114 350.1.13.10 4.2.7.2.686 [id number] [facility] 2021-12-08 14:30:00 2021-12-08 15:50:57 Outpatient R TAMMI MCDONOUGH [facility] [id number] [facility] 2021-12-08 14:30:00 2021-12-08 15:50:57 Office Visit Tammi Mcdonough [facility] 1.2.840.114 350.1.13.10 4.2.7.2.686 [id number] [facility] 2021-12-07 19:28:00 2021-12-07 21:06:00 Emergency X NERIS NAVASN [facility] ERT [id number] [facility] 2021-12-07 19:28:00 2021-12-07 21:06:00 Emergency Neris Navasn R [facility] 1.2840.114 350.1.13.10 4.2.7.2.686 [id number] [facility] 2021-12-07 00:00:00 2021-12-07 00:00:00 Orders Only Doctor Unassigned, [facility] 1.2.840.114 350.1.13.10 4.2.7.2.686 [id number] [facility] 2021-08-05 13:30:00 2021-08-05 14:34:59 Office Visit Adum Tammi Alarcon [facility] 1.2.840.114 350.1.13.10 4.2.7.2.686 [id number] 134 [id number] [facility] 2021-08-05 13:30:00 2021-08-05 14:34:59 Outpatient R ADDAYNA TAMMI [facility] [id number] [facility] 2021-08-05 13:30:00 2021-08-05 13:30:00 Outpatient R ADDAYNA TAMMI [facility] [id number] [facility] 2021-08-04 00:00:00 2021-08-04 00:00:00 Telephone Adum, Tammi Alarcon [facility] 1.2.840.114 350.1.13.10 4.2.7.2.686 [id number] 134 [id number] [facility] 2021-07-23 16:15:00 2021-07-23 16:15:00 Outpatient R ADDAYNA TAMMI [facility] [id number] [facility] 2021-07-17 15:45:00 2021-07-17 17:02:30 Outpatient R ADDAYNA [facility] [id number] [facility] 2021-07-17 15:45:00 2021-07-17 17:02:30 Office Visit Addayna Tammi Alarcon [facility] 1.2.840.114 350.1.13.10 4.2.7.2.686 [id number] [facility] 2021-07-17 15:45:00 2021-07-17 17:02:30 Outpatient R ADUMTAMMI [facility] [id number] [facility] 2021-07-17 15:45:00 2021-07-17 15:45:00 Outpatient R ADUM [facility] [id number] [facility] 2021-07-17 13:00:00 2021-07-17 13:00:00 Hiv/Aids Care Nurse Visit 2, Adc Lab AdumTammi [facility] BUILDING 1.2.840.114 350.1.13.10 4.2.7.2.686 [id number] [facility] 2021-07-12 00:00:00 2021-07-12 00:00:00 Telephone Adum, [facility] BUILDING 1.2.840.114 350.1.13.10 4.2.7.2.686 [id number] [facility] 2021-07-10 19:18:00 2021-07-10 20:58:00 Emergency X ABILIO LOPEZANNE [facility] ERT [id number] [facility] 2021-07-10 19:18:00 2021-07-10 20:58:00 Emergency Alma Lopez [facility] 1.2.840.114 350.1.13.10 4.2.7.2.686 [id number] [facility] 2021-07-09 16:45:00 2021-07-09 17:00:00 Hiv/Aids Care Nurse Visit Pob, Adc Lab Main Adum [facility] BUILDING 1.2.84.114 350.1.13.10 4.2.7.2.686 [id number] [facility] 2021-07-09 15:30:00 2021-07-09 16:38:35 Outpatient R ADUM [facility] [id number] [facility] 2021-07-09 15:30:00 2021-07-09 16:38:35 Initial Visit AdTammi mcintosh [facility] 1.2.840.114 350.1.13.10 4.2.7.2.686 [id number] 134 [id number] [facility] 2021-07-09 00:00:00 2021-07-09 00:00:00 Orders Only Doctor Unassigned, [facility] 1.2.840.114 350.1.13.10 4.2.7.2.686 [id number] [facility] 2021-06-09 08:32:05 2021-06-09 09:31:44 Office Visit Adum, Tammi Alarcon [facility] 1.2.840.114 350.1.13.10 4.2.7.2.686 [id number] 134 [id number] [facility] 2021-06-09 08:30:00 2021-06-09 09:31:44 [facility] [id number] 2021-05-15 16:00:00 2021-05-15 16:00:00 Outpatient R ADDAYNA [facility] [id number] [facility] 2021-05-15 16:00:00 2021-05-15 11:55:05 Outpatient R ADUMTAMMI [facility] [id number] [facility] 2021-05-15 10:41:32 2021-05-15 11:55:05 Office Visit AdTammi mcintosh [facility] 1.2.840.114 350.1.13.10 4.2.7.2.686 [id number] 134 [id number] [facility] 2021-05-15 00:00:00 2021-05-15 00:00:00 Orders Only Doctor Unassigned, [facility] 1.2840.114 350.1.13.10 4.2.7.2.686 [id number] [id number] [facility] 2021-05-13 00:00:00 2021-05-13 00:00:00 Telephone Jovita Cordova [facility] 1.20.114 350.1.13.10 4.2.7.2.686 [id number] [facility] 2021-05-12 18:48:05 2021-05-12 19:03:05 Laboratory Only Only, [facility] 1.2840.114 350.1.13.10 4.2.7.2.686 [id number] [facility] 2021-05-12 19:00:00 2021-05-12 19:00:00 Outpatient R BIBIANA ANN [facility] [id number] [facility] 2020-12-19 10:24:28 2020-12-19 11:22:42 [facility] 1.2840.114 350.1.13.10 4.2.7.2.686 [id number] 134 [id number] [facility] 2020-12-19 10:30:00 2020-12-19 10:30:00 [facility] [id number] [facility] 2020-12-19 00:00:00 2020-12-19 00:00:00 Orders Only Doctor Unassigned, [facility] 1.2840.114 350.1.13.10 4.2.7.2.686 [id number] [id number] [facility] 2020 16:00:55 2020 16:28:52 Routine Visit AdTammi mcintosh [facility] 1.2.840.114 350.1.13.10 4.2.7.2.686 [id number] 134 [id number] [facility] 2020 16:00:00 2020 16:00:00 Outpatient R SHARONDA [facility] [id number] [facility] 2020-11-05 00:03:00 2020-11-07 10:45:00 Hospital Encounter Fer Leslie Cam Dredayna [facility] 1.2.840.114 350.1.13.10 4.2.7.2.686 [id number] [id number] [facility] 2020-11-05 08:22:00 2020-11-05 16:45:00 Anesthesia Event Rubén Suhail Appiah [facility] 1.2.840.114 350.1.13.10 4.2.7.2.686 [id number] 083 [id number] [facility] 2020-11-05 08:42:02 2020-11-05 08:42:02 Anesthesia Event Nahum Montana [facility] 1.2.840.114 350.1.13.10 4.2.7.2.686 [id number] 083 [id number] [facility] 2020-11-04 13:40:43 2020-11-04 13:55:43 Laboratory Only Only, Adc Test Sharonda [facility] 1.2.840.114 350.1.13.10 4.2.7.2.686 [id number] [facility] 2020-11-04 13:30:00 2020-11-04 13:30:00 Outpatient R SHARONDA [facility] [id number] [facility] 2020-10-31 08:13:52 2020-10-31 08:50:15 Routine Visit Adum, Tammi L [facility] Building 1.2.840.114 350.1.13.10 4.2.7.2.686 [id number] 134 [id number] [facility] 2020-10-31 08:15:00 2020-10-31 08:15:00 Outpatient R ADUM, TAMMI [facility] [id number] [facility] 2020-10-24 09:45:15 2020-10-24 10:23:56 Routine Visit Adum, Tammi Alarcon [facility] Building 1.2840.114 350.1.13.10 4.2.7.2.686 [id number] [facility] 2020-10-24 09:45:00 2020-10-24 09:45:00 Outpatient R ADUM, TAMMI [facility] [id number] [facility] 2020-10-17 15:23:09 2020-10-17 15:45:43 Hiv/Aids Care Nurse Visit Ultrasound, Adc Mfm Micheal Yessi Giuliana [facility] Building 1.2.840.114 350.1.13.10 4.2.7.2.686 [id number] 134 [id number] [facility] 2020-10-17 08:08:54 2020-10-17 08:50:39 Routine Visit Adum, Tammi Alarcon [facility] Building 1.2.840.114 350.1.13.10 4.2.7.2.686 [id number] [facility] 2020-10-17 08:15:00 2020-10-17 08:15:00 Outpatient R ADUM, TAMMI [facility] [id number] [facility] 2020-10-10 10:33:38 2020-10-10 11:50:53 Routine Visit Adum, Tammi Alarcon [facility] Building 1.2840.114 350.1.13.10 4.2.7.2.686 [id number] 134 [id number] [facility] 2020-10-10 10:30:00 2020-10-10 10:30:00 Outpatient R ADUM, TAMMI [facility] [id number] [facility] 2020-10-10 00:00:00 2020-10-10 00:00:00 Orders Only Doctor Unassigned, [facility] 1.2840.114 350.1.13.10 4.2.7.2.686 [id number] [id number] [facility] 2020-10-03 08:09:13 2020-10-03 08:38:48 Routine Visit Adum, Tammi [facility] 1.284.114 350.1.13.10 4.2.7.2.686 [id number] [facility] 2020-10-03 08:15:00 2020-10-03 08:15:00 Outpatient R ADUM, TAMMI [facility] [id number] [facility] 2020-09-19 10:31:31 2020-09-19 11:05:26 Routine Visit Adum, Tammi [facility] 1.2.840.114 350.1.13.10 4.2.7.2.686 [id number] 134 [id number] [facility] 2020-09-19 10:30:00 2020-09-19 10:30:00 Outpatient R ADUM, TAMMI [facility] [id number] [facility] 2020-09-05 07:59:43 2020-09-05 08:57:48 Routine Visit Adum, Tammi [facility] 1.2840.114 350.1.13.10 4.2.7.2.686 [id number] [facility] 2020-09-05 08:00:00 2020-09-05 08:00:00 Outpatient R ADUM, TAMMI [facility] [id number] [facility] 2020-08-22 08:10:11 2020-08-22 09:02:34 Routine Visit Adum, Tammi Alarcon [facility] 1.2.840.114 350.1.13.10 4.2.7.2.686 [id number] [facility] 2020-08-22 08:15:00 2020-08-22 08:15:00 [facility] [id number] 2020-08-12 11:30:00 2020-08-12 11:30:00 [facility] [id number] [facility] 2020-08-12 10:15:00 2020-08-12 10:15:00 Outpatient R [facility] [id number] [facility] 2020-08-07 15:46:50 2020-08-07 16:44:57 Routine Visit Adum, Tammi Alarcon [facility] 1.2.840.114 350.1.13.10 4.2.7.2.686 [id number] [facility] 2020-08-07 16:00:00 2020-08-07 16:00:00 Outpatient R ADUM, TAMMI [facility] [id number] [facility] 2020-08-07 14:42:14 2020-08-07 14:57:14 Hiv/Aids Care Nurse Visit 2, Adc Lab Adum, Tammi Alarcon [facility] 1.2.840.114 350.1.13.10 4.2.7.2.686 [id number] [facility] 2020-07-15 08:17:32 2020-07-15 08:32:32 Telemedici ne Visit Adum, Tammi [facility] Building 1.2.840.114 350.1.13.10 4.2.7.2.686 [id number] 134 [id number] [facility] 2020-07-15 08:00:00 2020-07-15 08:00:00 Outpatient R TAMMI MCDONOUGH [facility] [id number] [facility] 2020-06-17 08:03:41 2020-06-17 08:14:58 Telemedici ne Visit AdTammi mcintosh [facility] 1.2.840.114 350.1.13.10 4.2.7.2.686 [id number] 134 [id number] [facility] 2020-06-17 08:00:00 2020-06-17 08:00:00 Outpatient R SHARONDA [facility] [id number] [facility] 2020-06-13 10:50:18 2020-06-13 11:50:18 Hiv/Aids Care Nurse Visit Ultrasound, Adc Mfm Adrienne Ellis [facility] 1.2.840.114 350.1.13.10 4.2.7.2.686 [id number] 134 [id number] [facility] 2020-06-13 11:00:00 2020-06-13 11:00:00 Outpatient P [facility] [id number] [facility] 2020-06-13 00:00:00 2020-06-13 00:00:00 Telephone AdTammi mcintosh [facility] Building 1.2.840.114 350.1.13.10 4.2.7.2.686 [id number] 134 [id number] [facility] 2020-06-09 00:00:00 2020-06-09 00:00:00 Telephone AdTammi mcintosh [facility] 1.2.840.114 350.1.13.10 4.2.7.2.686 [id number] 134 [id number] [facility] 2020-05-28 00:00:00 2020-05-28 00:00:00 Patient Secure Msg Doctor Unassigned, [facility] 1.2.114 350.1.13.10 4.2.7.2.686 [id number] [facility] 2020-05-28 00:00:00 2020-05-28 00:00:00 Telephone Adum, Tammi Alarcon [facility] 1.2.114 350.1.13.10 4.2.7.2.686 [id number] [facility] 2020-05-20 09:40:59 2020-05-20 09:55:59 Hiv/Aids Care Nurse Visit 2, Adc Lab Adum, [facility] 1..114 350.1.13.10 4.2.7.2.686 [id number] [facility] 2020-05-20 08:19:57 2020-05-20 09:11:49 [facility]ine [facility] 1.2.114 350.1.13.10 4.2.7.2.686 [id number] [facility] 2020-05-20 08:15:00 2020-05-20 08:15:00 Outpatient R ADUM, TAMMI [facility] [id number] [facility] 2020-05-20 00:00:00 2020-05-20 00:00:00 Orders Only Doctor Unassigned, [facility] 1.114 350.1.13.10 4.2.7.2.686 [id number] [id number] [facility] 2020-04-22 16:12:05 2020-04-22 16:27:05 Hiv/Aids Care Nurse Visit 2, Adc Lab Adum, Tammi Alarcon [facility] Building 1.2.840.114 350.1.13.10 4.2.7.2.686 [id number] [facility] 2020-04-22 14:10:37 2020-04-22 15:54:02 Initial Visit Tammi Mcdonough [facility] Building 1.2.840.114 350.1.13.10 4.2.7.2.686 [id number] [facility] 2020-04-22 14:30:00 2020-04-22 14:30:00 Outpatient R TAMMI MCDONOUGH [facility] [id number] [facility] 2020-04-22 00:00:00 2020-04-22 00:00:00 Orders Only Doctor Unassigned, [facility] 1.2.840.114 350.1.13.10 4.2.7.2.686 [id number] [facility] 2020-01-27 00:00:00 2020-01-27 00:00:00 Patient Secure Msg Doctor Unassigned, [facility] 1.2.840.114 350.1.13.10 4.2.7.2.686 [id number] [facility] 2020-01-25 00:00:00 2020-01-25 00:00:00 Patient Secure Msg Doctor Unassigned, [facility] 1.2.840.114 350.1.13.10 4.2.7.2.686 [id number] [facility] 2020-01-25 00:00:00 2020-01-25 00:00:00 Telephone Nataliia Yuen [facility] 1.2840.114 350.1.13.10 4.2.7.2.686 [id number] [facility] 2020-01-24 14:21:54 2020-01-24 14:41:54 Laboratory Only Lab, Adc Fam Ceci Leung [facility] [place] [facility] 1..840.114 350.1.13.10 4.2.7.2.686 [id number] [id number] [facility] 2020-01-24 14:20:00 2020-01-24 14:20:00 Outpatient R [facility] [id number] [facility] 2020-01-24 00:00:00 2020-01-24 00:00:00 Letter (Out) Doctor Unassigned, [facility] 1..840.114 350.1.13.10 4.2.7.2.686 [id number] [facility] Results Test Description Test Time Test Comments Results Result Co mments Source [facility] - ONCE [id number] 18:19:16 * Test Item Value Reference Range Interpretation Comme nts ABO & RH (test code = 20) O Positive Performed at [facility] Laboratory [facility] Blood [address] [place] [address] Free: [phone] No. [id number] IAT (test code = 1185) Negative Performed at [facility] Blood [place] [address]Toll Free: [phone] No. [id number] [facility] URINALYS[facility] W/O SPECIFIC [id number] 14:45:00* Test Item Value Reference Range Interpretation Comme nts POCT PH U (test code = 3254) N/A 5-8 POCT U LEUK EST (test code = 3263) N/A Negative - Negative POCT U NIT (test code = 3262) N/A Negative - Negati ve POCT U PROT (test code = 3259) Negative Negative - Negat marty POCT U GLU (test code = 3256) Negative Negative - Negati ve POCT U KETONE (test code = 3258) N/A Negative - Neg ative POCT U BLD (test code = 3257) N/A Negative - Negati ve [facility] UR[facility] W/O SPECIFIC [id number] 19:07:00* Test Item Value Reference Range Interpretation Comme nts POCT PH U (test code = 3254) n/a 5-8 POCT U LEUK EST (test code = 3263) n/a Negative - Negative POCT U NIT (test code = 3262) n/a Negative - Negati ve POCT U PROT (test code = 3259) negative Negative - Negat marty POCT U GLU (test code = 3256) negative Negative - Negati ve POCT U KETONE (test code = 3258) n/a Negative - Neg ative POCT U BLD (test code = 3257) n/a Negative - Negati ve [facility] WITH [id number] 20:01:58* Test Item Value Reference Range Interpretation Comme nts WBC (test code = 6690-2) 9.82 See_Comment [Automated messa ge] The system which generated this result transmitted reference range: 4.30 - 11.10 10*3/?L. The reference range was not used to interpret this result as normal/abnormal. RBC (test code = 789-8) 3.58 See_Comment L [Automated messa ge] The system which generated this result transmitted reference range: 3.93 - 5.25 10*6/?L. The reference range was not used to interpret this result as normal/abnormal. HGB (test code = 718-7) 9.3 g/dL 11.6-15.0 L HCT (test code = 4544-3) 29.4 % 35.7-45.2 L MCV (test code = 787-2) 82.1 fL 80.6-95.5 MCH (test code = 785-6) 26.0 pg 25.9-32.8 MCHC (test code = 786-4) 31.6 g/dL 31.6-35.1 RDW-SD (test code = 23099-1) 37.7 fL 39.0-49.9 L RDW-CV (test code = 788-0) 12.9 % 12.0-15.5 PLT (test code = 777-3) 303 See_Comment [Automated messa ge] The system which generated this result transmitted reference range: 166 - 358 10*3/?L. The reference range was not used to interpret this result as normal/abnormal. MPV (test code = 79177-3) 12.3 fL 9.5-12.9 NRBC/100 WBC (test code = 5410165158) 0.0 See_Comment [Automated me ssage] The system which generated this result transmitted reference range: 0.0 - 10.0 /100 WBCs. The reference range was not used to interpret this result as normal/abnormal. NRBC x10^3 (test code = 0976619373) See_Comment [Automated messa ge] The system which generated this result transmitted reference range: 10*3/?L. The reference range was not used to interpret this result as normal/abnormal. GRAN MAT (NEUT) % (test code = 770-8) 64.3 % IMM GRAN % (test code = 5696205550) 0.50 % LYMPH % (test code = 736-9) 29.2 % MONO % (test code = 5905-5) 5.4 % EOS % (test code = 713-8) 0.2 % BASO % (test code = 706-2) 0.4 % GRAN MAT x10^3(ANC) (test code = 3233908998) 6.31 10*3/uL 1.88-7.09 IMM GRAN x10^3 (test code = 8079722279) 0.05 10*3/uL 0.00-0.06 LYMPH x10^3 (test code = 731-0) 2.87 10*3/uL 1.32-3.29 MONO x10^3 (test code = 742-7) 0.53 10*3/uL 0.33-0.92 EOS x10^3 (test code = 711-2) 0.03-0.39 L BASO x10^3 (test code = 704-7) 0.04 10*3/uL 0.01-0.07 Lab Interpretation (test code = 33617-5) Abnormal [facility] URINALYSIS W/O SPECIFIC [id number] 17:24:00* Test Item Value Reference Range Interpretation Comme nts POCT PH U (test code = 3254) n/a 5-8 POCT U LEUK EST (test code = 3263) n/a Negative - Negative POCT U NIT (test code = 3262) n/a Negative - Negati ve POCT U PROT (test code = 3259) negative Negative - Negat marty POCT U GLU (test code = 3256) negative Negative - Negati ve POCT U KETONE (test code = 3258) n/a Negative - Neg ative POCT U BLD (test code = 3257) n/a Negative - Negati ve [facility] URINALYSIS W/O SPECIFIC [id number] 19:23:00* Test Item Value Reference Range Interpretation Comme nts POCT PH U (test code = 3254) N/A 5-8 POCT U LEUK EST (test code = 3263) N/A Negative - Negative POCT U NIT (test code = 3262) N/A Negative - Negati ve POCT U PROT (test code = 3259) Negative Negative - Negat marty POCT U GLU (test code = 3256) Negative Negative - Negati ve POCT U KETONE (test code = 3258) N/A Negative - Neg ative POCT U BLD (test code = 3257) N/A Negative - Negati ve [facility] URINALYSIS W/O SPECIFIC [id number] 19:23:00* Test Item Value Reference Range Interpretation Comme nts POCT PH U (test code = 3254) N/A 5-8 POCT U LEUK EST (test code = 3263) N/A Negative - Negative POCT U NIT (test code = 3262) N/A Negative - Negati ve POCT U PROT (test code = 3259) Negative Negative - Negat marty POCT U GLU (test code = 3256) Negative Negative - Negati ve POCT U KETONE (test code = 3258) N/A Negative - Neg ative POCT U BLD (test code = 3257) N/A Negative - Negati ve [facility] URINALYSIS W/O SPECIFIC [id number] 16:41:00* Test Item Value Reference Range Interpretation Comme nts POCT PH U (test code = 3254) n/a 5-8 POCT U LEUK EST (test code = 3263) n/a Negative - Negative POCT U NIT (test code = 3262) n/a Negative - Negati ve POCT U PROT (test code = 3259) negative Negative - Negat marty POCT U GLU (test code = 3256) negative Negative - Negati ve POCT U KETONE (test code = 3258) n/a Negative - Neg ative POCT U BLD (test code = 3257) n/a Negative - Negati ve [facility] URINALYSIS W/O SPECIFIC [id number] 17:09:00* Test Item Value Reference Range Interpretation Comme nts POCT PH U (test code = 3254) N/A 5-8 POCT U LEUK EST (test code = 3263) N/A Negative - Negative POCT U NIT (test code = 3262) N/A Negative - Negati ve POCT U PROT (test code = 3259) Negative Negative - Negat marty POCT U GLU (test code = 3256) Negative Negative - Negati ve POCT U KETONE (test code = 3258) N/A Negative - Neg ative POCT U BLD (test code = 3257) N/A Negative - Negati ve [facility] URINALYSIS W/O SPECIFIC [id number] 19:41:00* Test Item Value Reference Range Interpretation Comme nts POCT PH U (test code = 3254) n/a 5-8 POCT U LEUK EST (test code = 3263) n/a Negative - Negative POCT U NIT (test code = 3262) na Negative - Negati ve POCT U PROT (test code = 3259) negative Negative - Negat marty POCT U GLU (test code = 3256) negative Negative - Negati ve POCT U KETONE (test code = 3258) n/a Negative - Neg ative POCT U BLD (test code = 3257) na Negative - Negati ve [facility] URINALYSIS W/O SPECIFIC [id number] 19:12:00* Test Item Value Reference Range Interpretation Comme nts POCT PH U (test code = 3254) n/a 5-8 POCT U LEUK EST (test code = 3263) n/a Negative - Negative POCT U NIT (test code = 3262) n/a Negative - Negati ve POCT U PROT (test code = 3259) trace Negative - Negat marty POCT U GLU (test code = 3256) negative Negative - Negati ve POCT U KETONE (test code = 3258) n/a Negative - Neg ative POCT U BLD (test code = 3257) n/a Negative - Negati ve [facility] [id number] 14:52:00* Test Item Value Reference Range Interpretation Comme nts POCT PH U (test code = 3254) n/a 5-8 POCT U LEUK EST (test code = 3263) n/a Negative - Negative POCT U NIT (test code = 3262) n/a Negative - Negati ve POCT U PROT (test code = 3259) negative Negative - Negat marty POCT U GLU (test code = 3256) negative Negative - Negati ve POCT U KETONE (test code = 3258) n/a Negative - Neg ative POCT U BLD (test code = 3257) n/a Negative - Negati ve [facility]/O SPECIFIC [id number] 16:04:00* Test Item Value Reference Range Interpretation Comme nts POCT PH U (test code = 3254) 6 mg/dl 5-8 POCT U LEUK EST (test code = 3263) + Negative - Negative POCT U NIT (test code = 3262) + Negative - Negati ve POCT U PROT (test code = 3259) Negative Negative - Negat marty POCT U GLU (test code = 3256) Negative Negative - Negati ve POCT U KETONE (test code = 3258) Negative Negative - Neg ative POCT U BLD (test code = 3257) Negative Negative - Negati ve Lab Interpretation (test cod e = [id number]) Abnormal [facility] Notes Date/Time Note Provider Source 2023-06-18 15:49:00 [id number] pFhYWPcSUP6BDk LqGKIjI1dth7Dk+gS3Au3roc1PbK9v1530 -12-23T15:49:00 Pt given printed and verbal discharge instructions regarding dental infection, encouraged hydration.Prescriptions provided.Discussed ibuprofen and to take with food to avoid GI distress.Discussed antibiotic therapy and to take until all completed unless adverse reaction occurs - if occurs, discontinue medication and follow up with pcp/seek medical attention.Pt verbalized understanding of instructions, pt awake alert oriented, resp reg unlabored, skin w/d, color appropriate for race, moves all ext well,pt encouraged to follow up with pcp and or dentist.Advised to seek medical attention for new/prolonged/worsening of symptoms.No adverse reaction to meds given in ER noted upon discharge.Awake, alert oriented, resp reg unlabored, skin w/d, pt leaving amb with steady gait, in no apparent distress. [id number] department PgvdOG8748-59-90J06:52:34[facility] [id number] for patient pdgn49857-7MrkdQCFCUCNTSBAJoapmamu d C-CDA narrative [id number] C Heredia RNUT[address] StreetJo[id number] 17HAXHNSZWZSUOVIBNFZIRDZ6675-49-82 T15:52:341.2.840.313748.1.72.3.15| [id number] Yadira Snell RN [facility] 2023-06-18 14:53:47 UCuG/sXZ+lwvvPusk2s/ WJ42nLCnyogszb tPx8+n5BENoxiPk/Rnd4d4Dd2UwNoZ2259 -12-23T14:53:47 Patient states: "I started having pain in my tooth (left lower) three days ago. [facility] and a crown. They wanted to replace the crown at one point but they couldn't. I don't have insurance to see a dentist" [address]15-5[place]olaune department Triage qcjaVN6923-59-87Y84:54:39[facility] Triage [id number] for patient zckm40152-0Ioslgmfvo department NoteLNNARRATIVEFormatted C-CDA narrative [id number] M Cruz RN[address] Cn[id number] 48NWCVQPXVJNQYRFNNXCFNSF0395-81-12 T14:54:391.2.840.674555.1.72.3.15| [id number] Anahi Hatch RN [facility]
[2023-11-04 14:50] LABS: Absolute Lymphocytes (CBC) 2.6 K/uL (0.7-4.9); Absolute Monocytes 0.5 K/uL (0.1-1.3); Absolute Neutrophil 6.7 K/uL (1.8-8.0); Basophils % 0.4 % (0-1.3); Eosinophils % 0.2 % (0-4.4); Hematocrit 35.3 % (36.0-45.0); Hemoglobin 11.4 g/dL (12.0-15.0); Lymphocytes % 26.5 % (15.3-44.8); MCH 26.3 pg (27.0-35.0); MCHC 32.3 g/dL (32.0-36.0); MCV 81.4 fL (80-100); MPV 11.1 fL (7.6-11.3); Monocytes % 4.8 % (3.3-12.3); Neutrophils % 68.1 % (41.7-73.7); Platelets 299 thou/uL (152-406); RBC Red Blood Cell Count 4.33 M/uL (3.86-4.86); Red Cell Distribution Width 15.2 % (12.1-15.2)
[2023-11-04 14:56] LABS: Specific Gravity > 1.030 (1.005-1.030); Sqamous Epithelial <5 /HPF (None Seen); Urine Bacteria <20 /HPF (<20); Urine Bilirubin NEGATIVE (Negative); Urine Blood Negative (Negative); Urine Clarity Clear (Clear); Urine Color Light-Yellow (Yellow); Urine Culture Reflex Order NOT NEEDED; Urine Glucose NEGATIVE (Negative); Urine Ketones TRACE (Negative); Urine Microscopic Reflex YN ORDER UMIC; Urine Mucus 2+ /HPF (None Seen); Urine Nitrite NEGATIVE (Negative); Urine Protein TRACE (Negative); Urine RBC <5 /HPF (None Seen); Urine Urobilinogen Normal (Normal); Urine WBC <5 /HPF (<5)
[2023-11-04 15:08] LABS: Specific Gravity > 1.030 (1.005-1.030)
[2023-11-04 15:11] LABS: Anion Gap 7.3 mEq/L (5.0-15.0); Potassium 3.3 mEq/L (3.5-5.1)
--- NOTE | 2023-11-04 15:27 | RAD REPORT ---
EXAM DESCRIPTION: US - Transvaginal OB - 11/04/2023 3:13 pm CLINICAL HISTORY: with vaginal bleeding COMPARISON: None. FINDINGS: The uterus measures 10 x 4 x 6 centimeters. The endometrial stripe measures 21 millimeter s. A gestational sac is not seen. The left ovary is enlarged. It contains 3.3 centimeter complex cystic mass. Right ovary is normal in size echotexture The right and left adnexa unremarkable No significant free fluid IMPRESSION: Nonvisualization of a gestational sac within the endometrium. These findings could represent an early intrauterine in which the gestational sac is not se en. Incomplete and even an ectopic can also result in this appearance. This all sh ould be correlated clinically and with serial beta HCG levels. Followup endovaginal sonogram in 1 daija jeff recommended 3.3 centimeter complex cystic mass left ovary probably a hemorrhagic cyst. This should be evaluated o n the subsequent ultrasound
--- NOTE | 2023-11-04 15:44 | ER ---
Nurse's Notes [facility] Name: Letitia Young Age: 22 yrs Sex: Female : 2000 Arrival Date: 11/04/2023 Time: 13:58 Bed 15 Private MD: Diagnosis: Less than 8 weeks gestation of Presentation: 11/03 14:16 Chief complaint: N/V and breast tenderness x 3 days. Positive home test hb today. LMP 08/20, . Coronavirus screen: At this time, the client does not indicate any symptoms associated with coronavirus-19. Ebola Screen: No symptoms or risks identified at this time. Initial Sepsis Screen: Does the patient meet any 2 criteria? No. Patient's initial sepsis screen is negative. Does the patient have a suspected source of infection? No. Patient's initial sepsis screen is negative. Risk Assessment: Do you want to hurt yourself or someone else? Patient reports no desire to harm self or others. Onset of symptoms was November 01, 2023. 14:16 Method Of Arrival: Ambulatory hb 14:16 Acuity: SUBHASH 3 hb Triage Assessment: 14:19 General: Appears in no apparent distress. Behavior is calm, cooperative. Pain: Denies hb pain. Neuro: Level of Consciousness is awake, alert, obeys commands, Oriented to person, place, time, situation. Cardiovascular: Patient's skin is warm and dry. Respiratory: Respiratory effort is even, unlabored, Respiratory pattern is regular, symmetrical. GI: Reports nausea, vomiting. FORENSIC AUDIT EXPERT: 15:45 LMP 07/28/2023, unknown me1 Historical: - Allergies: 14:19 No Known Allergies; hb - Home Meds: 14:19 None [Active]; hb - PMHx: 14:19 None; hb - PSHx: 14:19 None; hb - Immunization history:: Adult Immunizations up to date. - Infectious Disease History:: Denies. - Social history:: Smoking status: Patient denies any tobacco usage or history of. Screenin:43 [facility] ED Fall Risk Assessment (Adult) History of falling in the last 3 months, me1 including since admission No falls in past 3 months (0 pts) Confusion or Disorientation No (0 pts) Intoxicated or Sedated No (0 pts) Impaired Gait No (0 pts) Mobility Assist Device Used No (0 pt) Altered Elimination No (0 pt) Score/Fall Risk Level 0 - 2 = Low Risk Maintained a safe environment, Provided non-skid footwear, Hourly rounding (assess needs \T\ fall precautionary measures) done. Abuse screen: Denies threats or abuse. Nutritional screening: No deficits noted. Tuberculosis screening: No symptoms or risk factors identified. Assessment: 14:43 General: Appears comfortable, well groomed, well developed, well nourished, Behavior is me1 calm, cooperative, appropriate for age, Reports N/V and breast tenderness x 3 days. Positive home test today. LMP 08/20, . Pain: Complains of pain in right breast and left breast Pain does not radiate. Pain currently is 2 out of 10 on a pain scale. Quality of pain is described as tender, Pain began gradually, Is continuous. Neuro: Level of Consciousness is awake, alert, obeys commands, Oriented to person, place, time, situation, Appropriate for age. Cardiovascular: Capillary refill < 3 seconds Patient's skin is warm and dry. Respiratory: Airway is patent Respiratory effort is even, unlabored, Respiratory pattern is regular, symmetrical. GI: Reports nausea, vomiting, since 3 days ago. GI: Abdomen is non-distended, Reports. : No signs and/or symptoms were reported regarding the genitourinary system. EENT: No signs and/or symptoms were reported regarding the EENT system. Derm: Skin is intact, is healthy with good turgor, Skin is pink, warm \T\ dry. Musculoskeletal: No signs and/or symptoms reported regarding the musculoskeletal system. Vital Signs: 14:18 BP 120 / 76; Pulse 103; Resp 16; Temp 99.1; Pulse Ox 100% ; Weight 49.9 kg; Height 5 hb ft. 1 in. ; Pain 0/10; 14:30 BP 110 / 68; Pulse 99; Resp 16; Pulse Ox 100% on R/A; me1 15:30 BP 108 / 65; Pulse 91; Resp 16; Pulse Ox 100% on R/A; me1 14:18 Body Mass Index 20.78 (49.90 kg, 154.94 cm) hb 14:18 Pain Scale: Adult hb ED Course: 14:02 Patient arrived in ED. im 14:03 Maddy Velez FNP-C is [facility]. kb 14:03 Rosalio Hsieh MD is Attending Physician. kb 14:17 Triage completed. hb 14:18 Arm band placed on. hb 14:29 Inserted saline lock: 20 gauge in right antecubital area, using aseptic technique. jr12 Blood collected. 14:30 Urine collected: clean catch specimen, cloudy. jr12 14:30 Abo/rh Typing Sent. jr12 14:30 Basic Metabolic Panel Sent. jr12 14:30 CBC with Diff Sent. jr12 14:30 Test, Urine Sent. jr12 14:30 Quantitative Hcg Sent. jr12 14:30 Urinalysis w/ reflexes Sent. jr12 14:43 Scarlett Jain, RN is Primary Nurse. me1 14:43 Patient has correct armband on for positive identification. Bed in low position. Call me1 light in reach. Side rails up X2. Provided Education on: POC. Verbalized understanding. . Client placed on continuous cardiac and pulse oximetry monitoring. NIBP monitoring applied. Pulse ox on. NIBP on. 14:43 No provider procedures requiring assistance completed. me1 15:14 US Transvaginal Ob In Process Unspecified. EDMS 15:51 IV discontinued, intact, bleeding controlled, No redness/swelling at site. Pressure me1 dressing applied. Administered Medications: No medications were administered Medication: 14:43 VIS not applicable for this client. me1 Outcome: 15:44 Discharge ordered by . kb 15:51 Discharged to home ambulatory, me1 15:51 Condition: stable 15:51 Discharge instructions given to patient, Instructed on discharge instructions, follow up and referral plans. Demonstrated understanding of instructions, follow-up care, 15:51 Patient left the ED. me1 Signatures: Dispatcher [employer] EDMT Maddy Velez FNP-C FNP-Ckb Baxter, Heather, RN RN Ashleigh Hobbs Scarlett Jain, RN RN me1 Krysten Mejia jr12 Corrections: (The following items were deleted from the chart) 14:19 14:16 Chief complaint: N/V and breast tenderness x 3 days. LMP 2/24. hb hb 14:20 14:16 Chief complaint: N/V and breast tenderness x 3 days. Positive home test hb today. LMP 2/24. hb 14:43 14:16 Chief complaint: N/V and breast tenderness x 3 days. Positive home test me1 today. LMP 08/20, . hb
--- NOTE | 2023-11-04 15:44 | EDPHYS ---
Physician Documentation [facility] Name: Letitia Young Age: 22 yrs Sex: Female : 2000 Arrival Date: 11/04/2023 Time: 13:58 Bed 15 Private MD: ED Physician Rosalio Hsieh HPI: 11/03 17:10 This 22 yrs old Female presents to ER via Ambulatory with complaints of kb Nausea/Vomiting, Breast Problem - tenderness. 17:10 Pt is a 22 year old female who presents with nausea and vomiting with breast tenderness kb for a couple of days. States she is tolerating po intake, just has the nausea and vomiting in the mornings. states she took a test this morning and it was positive. Reports LMP 08/20/23 and has had a miscarriage since then.. 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 - Infectious Disease History:: Denies. - Social history:: Smoking status: Patient denies any tobacco usage or history of. ROS: 17:09 Constitutional: As per HPI kb Exam: 17:09 Constitutional: This is a well developed, well nourished patient who is awake, alert, kb and in no acute distress. Head/Face: Normocephalic, atraumatic. ENT: Moist Mucous membranes Cardiovascular: Regular rate Respiratory: Respirations even and unlabored. No increased work of breathing. Talking in full sentences Back: No spinal tenderness. No costovertebral tenderness. Full range of motion. Skin: Warm, dry with normal turgor. Normal color. MS/ Extremity: Pulses equal, no cyanosis. Neurovascular intact. Full, normal range of motion. Neuro: Awake and alert, GCS 15, oriented to person, place, time, and situation. Moves all extremities. Normal gait. 17:09 Abdomen/GI: Inspection: abdomen appears normal, Bowel sounds: normal, Palpation: soft, in all quadrants, mild abdominal tenderness, in the suprapubic area, Vital Signs: 14:18 BP 120 / 76; Pulse 103; Resp 16; Temp 99.1; Pulse Ox 100% ; Weight 49.9 kg; Height 5 hb ft. 1 in. ; Pain 0/10; 14:30 BP 110 / 68; Pulse 99; Resp 16; Pulse Ox 100% on R/A; me1 15:30 BP 108 / 65; Pulse 91; Resp 16; Pulse Ox 100% on R/A; me1 14:18 Body Mass Index 20.78 (49.90 kg, 154.94 cm) hb 14:18 Pain Scale: Adult hb MDM: 14:04 Patient medically screened. kb 17:09 Differential diagnosis: uti, . Data reviewed: vital signs, nurses notes. kb Counseling: I had a detailed discussion with the patient and/or guardian regarding the historical points, exam findings, and any diagnostic results supporting the discharge/admit diagnosis, lab results, radiology results, the need for outpatient follow up, an OB/Gyne specialist, to return to the emergency department if symptoms worsen or persist or if there are any questions or concerns that arise at home. 11/03 14:19 Order name: Abo/rh Typing kb 11/03 14:19 Order name: Basic Metabolic Panel; Complete Time: 15:15 kb 11/03 14:19 Order name: CBC with Diff; Complete Time: 15:02 kb 11/03 14:19 Order name: Test, Urine; Complete Time: 15:15 kb 11/03 14:19 Order name: Quantitative Hcg; Complete Time: 15:15 kb 11/03 14:19 Order name: Urinalysis w/ reflexes; Complete Time: 14:58 kb 11/03 14:19 Order name: US Transvaginal Ob; Complete Time: 15:29 kb 11/03 14:19 Order name: IV Saline Lock; Complete Time: 14:30 kb 11/03 14:19 Order name: Labs collected and sent; Complete Time: 14:30 kb 11/03 14:19 Order name: NPO; Complete Time: 14:43 kb Administered Medications: No medications were administered Disposition Summary: 11/04/23 15:44 Discharge Ordered Notes: Location: Home kb Condition: Stable kb Diagnosis - Less than 8 weeks gestation of kb Followup: kb - With: Emergency Department - When: As needed - Reason: Worsening of condition Followup: kb - With: Private Physician - When: 2 - 3 days - Reason: Recheck today's complaints, Continuance of care, Re-evaluation by your physician Discharge Instructions: - Discharge Summary Sheet kb - First Trimester of , Deri-qy-Sleq kb Forms: - Medication Reconciliation Form kb - Antibiotic Education kb - Prescription Opioid Use kb - Patient Portal Instructions kb - Leadership Thank You Letter kb Signatures: Dispatcher [employer] Maddy Mendosa, Gracy Dover, RN RN
[2023-11-04 16:12] VITALS: BP 108/65; TEMP 99.1; O2SAT 100
== END 2023-11-04 15:51 | disposition home or self-care (01) ==
LOC: ER 13:58
DX: O21.9 Vomiting of pregnancy, unspecified (principal); Z3A.01 Less than 8 weeks gestation of pregnancy
CPT/HCPCS: 36415; 76817; 80048; 81001; 81025; 84702; 85025; 86900; 86901; 99284

== ENCOUNTER 2024-11-08 17:35 | Emergency (ER) | payer BC ==
--- OUTSIDE RECORDS SUMMARY | 2024-11-08 17:43 | XMS REPORT | Continuity of Care Document ---
Author Name Unknown Address [address] [facility] [place] [address] [facility] Address [address] [facility] [place] [address] Care Team Providers Care Visual Merchandiser Name Role Phone Pcp, Patient Does Not Have A Primary Care Physic janie SENG SHERIDAN Attending Clinician Unavailable Seng Sheridan MD Attending Clinician [phone] BIBIANA ANN Attending Clinician Unavailable Bibiana Ann MD Attending Clinician [phone] Unknown, Attending Attending Clinician Unavailab ALLISON Rosario Attending Clinician Unavailable ALLISON REMY Attending Clinician Unavailable Allison Purcell Attending Clinician [phone] Serg Rosado Attending Clinician [phone] SERG MENDEZ Attending Clinician Unavailable Campaigns, Generic Provider Attending Clinician Unavailable ROSMERY SOLARES Attending Clinician Unavailable Zulema Jauregui Attending Clinician [phone] ZULEMA ANTONIO Attending Clinician Unavailable Hearingtest Attending Clinician Unavailable Shield Attending Clinician Unavailable Surinder CASTILLO Attending Clinician Unavailable Jonathan PACSurinder Attending Clinician [phone] UNKNOWN, ATTENDING Attending Clinician Unavailab LAMONT Watts Attending Clinician Unavailable Lamont Flores MD Attending Clinician [phone] TAMMI MCDONOUGH Attending Clinician Unavailable Tammi Mcdonough MD Attending Clinician [phone] Doctor Unassigned, [place] Attending Clinician U Chuy Combs MD S Attending Clinician + [phone] Leatha Cortes DO S Attending Clinician [phone] Lab, Ang - Db Attending Clinician Unavailable VALENTE ZHANG Attending Clinician UnavailVALENTE Artis Attending Clinician Unavaila ble Ultrasound, Ang-Mfm Attending Clinician Unavaila Karon Rowe MD Attending Clinician + KARON GARCIA Attending Clinician Unav Yessi Kumar MD Attending Clinician [phone] YESSI ANDERSON Attending Clinician Unavailable 2, Adc Lab Attending Clinician Unavailable ALMA LOPEZ Attending Clinician Unavailable Alma Saez Attending Clinician [phone] JASS LEE Attending Clinician Unavaila Jass Ghosh Attending Clinician + [phone] RIA STEINER Attending Clinician Unavailab Ria Cardoso DO Attending Clinician [phone] SINDY NAVAS Attending Clinician Unavailable Sindy Mckay Attending Clinician [phone] Pob, Adc Lab Main Attending Clinician UnavailJovita Armas RN Attending Clinician Unavailable Only, Ang Db Test Attending Clinician Unavailjordan Ann MD, Bibiana Attending Clinician [phone] Fer Leslie MD Attending Clinician [phone] Nahum Montana CRNA Attending Clinician [phone] Suhail Thompson MD Attending Clinicia n Only, Adc Test Attending Clinician Unavailable Ultrasound, Adc Mfm Attending Clinician Unavailluciano Ellis MD, Adrienne Attending Clinician [phone] Akinsipe WHCNP, Nataliia C Attending Clinician + Lab, Adc Fam Pob I Attending Clinician Unavailab belen Wilburnedel LICENSED PHYSICAL THERAPY ASSISTANT Ceci Attending Clinician [phone] FER LESLIE Admitting Clinician Unavailable Hearingtest Admitting Clinician Unavailable Shield Admitting Clinician Unavailable LAMONT FLORES Admitting Clinician Unavailable ADUMTMAMI Admitting Clinician Unavailable Tammi Mcdonough MD Admitting Clinician [phone] ALMA LOPEZ Admitting Clinician Unavailable Fer Leslie MD Admitting Clinician [phone] Payers Payer Name Policy Type Policy Number Effective Date Expirati on Date Source [facility] [id number] 2020 00:00:00 [employer] [place] OUT OF STATE [id number] 2023 00:00:00 [place] [id number] MED[place]ID [place] [id number] 2020 00:00:00 [facility] MEDICAID [id number] 2017 00:00:00 Problems Condition Name Condition Details Condition Category Status Onset Date Resolution Date Last Treatment Date Treating Clinician Comments Source Cyst of vagina Cyst of Vagina Problem Active 2023-06 00:00: 00 [facility] Pain in pelvis Pain in Pelvis Problem Active 2023-06 00:00: 00 [facility] Labial cyst Labial Cyst Problem Active - 00:00: 00 [facility] Vulval pain Vulval Pain Problem Active 8- 00:00: 00 [facility] Intermenst rual bleeding - regular Intermenst rual Bleeding - Regular Problem Active 8- 00:00: 00 [facility] No known active problems No known active problems Disease [facility] Encounter for induction of labor Encounter for induction of labor Disease Resolve d 2-17 00:00: 00 2022-09-08 00:00:00 2022-09-08 13:09:06 [facility] Liveborn infant, of [place] , born in hospital by vaginal delivery Liveborn , of [place] , born in hospital by vaginal delivery Disease Resolve d 2022-0 2-17 00:00: 00 2022-09-08 00:00:00 2022-09-08 13:09:03 [facility] Anemia affecting Anemia affecting Disease Resolve d 2022-0 2-17 00:00: 00 2022-09-08 00:00:00 2022-09-08 13:09:09 [facility] Choroid plexus cyst of fetus in [place] Choroid plexus cyst of fetus in [place] Disease Resolve d 2021-1 0-06 00:00: 00 2022-09-08 00:00:00 2022-09-08 13:09:07 [facility] High-risk in third trimester High-risk in third trimester Disease Resolve d 2021-0 8-30 00:00: 00 2022-09-08 00:00:00 2022-09-08 13:09:04 [facility] 39 weeks gestation of 39 weeks gestation of Disease Resolve d 2019-1 0-29 00:00: 00 2022-09-08 00:00:00 2022-09-08 13:09:10 [facility] Low lying placenta nos or without hemorrhage , second trimester Low lying placenta nos or without hemorrhage , second trimester Disease Resolve d 2021-1 0-06 00:00: 00 2022-08-04 00:00:00 2022-08-04 15:34:24 [facility] Encounter for elective induction of labor Encounter for elective induction of labor Disease Resolve d 2020-0 5-12 00:00: 00 2020 00:00:00 2020 16:24:25 [facility] (normal spontaneou s vaginal delivery) (normal spontaneou s vaginal delivery) Disease Resolve d 2020-0 5-12 00:00: 00 2020 00:00:00 2020 16:04:37 [facility] Encounter for supervisio n of normal first in third trimester Encounter for supervisio n of normal first in third trimester Disease Resolve d 2019-06 0-29 00:00: 00 2020 00:00:00 2020 16:04:37 [facility] Contracept marty management Contracept marty management Disease Resolve d 2-15 00:00: 00 2020-04-24 00:00:00 2020-04-24 09:48:59 [facility] Allergies, Adverse Reactions, Alerts Allergy Name Allergy Type Status Severity Reaction(s) Onset Date Inactive Date Treating Clinician Comments Source NO KNOWN ALLERGIE S Drug Class Active [facility] Social History Social Habit Start Date Stop Date Quantity Comments Source ASSERTION 2021-11-25 00:00:00 Not [facility] intake 2024-10-08 00:00:00 2024-10-08 00:00:00 Current non-drinker of alcohol (finding) [facility] Alcohol intake 2023-06-18 00:00:00 2023-06-18 00:00:00 Current non-drinker of alcohol (finding) [facility] Exposure to SARS-CoV-2 (event) 2022-08-29 00:00:00 2022-09-08 13:03:00 Not sure [facility] Tobacco use and exposure 2022-01-12 00:00:00 2022-01-12 00:00:00 Smokeless tobacco non-user [facility] History of Social function 2020-12-19 00:00:00 2020-12-19 00:00:00 [facility] Sex assigned at 2000 00:00:00 2000 00:00:00 [facility] Smoking Status Start Date Stop Date Source Never smoked tobacco [facility] Medications Ordered Medication Name Filled Medication Name Start Date Stop Date Current Medication? Ordering Clinician Indication Dosage Frequency Signature (SIG) Comments Components Source methylPREDN ISolone (MEDROL, REINA,) 4 mg tablets 3 00:00: 00 Yes [id number] Take by mouth SEE-INSTRU CTIONS. follow package directions [facility] bromphenira mine-pseudo ephedrine-D M (BROMFED DM) 2-30-10 mg/5 mL syrup 09-24 00:00: 00 Yes [id number] 10mL Take 10 mL by mouth 4 (four) times daily as needed for Congestion /Allergies , Cold symptoms or Cough. [facility] neomycin-po lymyxin-hyd rocortisone otic solution 09-24 00:00: 00 Yes [id number] 4[drp] Place 4 Drops in right ear 4 (four) times daily. [facility] dexamethaso ne sod phos PF injection 10 mg 09-18 03:45: 00 09-18 04:23 :00 No 10mg 10 mg, Intramuscu lar, ONCE, 1 dose, On Tue09/17/24 at 2245, 1 mL [facility] ketorolac 10 mg tablet 09-17 00:00: 00 Yes [id number] 10mg Take 1 tablet by mouth every 6 (six) hours as needed for Pain (scale 4-6). [facility] azithromyci n 250 mg tablet 09-17 00:00: 00 09-23 04:59 :00 Yes [id number] 250mg Take 1 tablet by mouth SEE-INSTRU CTIONS for 5 days. Take 500 mg day 1, then 250 mg days 2 to 5. [facility] amoxicillin 500 mg tablet 08-28 00:00: 00 09-08 04:59 :00 Yes [id number] 500mg Take 1 tablet by mouth in the morning and 1 tablet in the evening. Do all this for 10 days. [facility] benzonatate 200 mg capsule 08-27 00:00: 00 09-07 04:59 :00 Yes [id number] 200mg Take 1 capsule by mouth 3 (three) times daily as needed for Cough for up to 10 days. [facility] amoxicillin 500 mg tablet 06-29 00:00: 00 07-10 05:59 :00 No [id number] 500mg Take 1 tablet by mouth in the morning and 1 tablet in the evening. Do all this for 10 days. [facility] amoxicillin 875 mg tablet 8-29 00:00: 00 03-05 04:59 :00 No [id number] 875mg Take 1 tablet by mouth in the morning and 1 tablet in the evening. Do all this for 10 days. [facility] amoxicillin amoxicillin 2022-06 00:00: 00 No amoxicilli n [facility] amoxicillin amoxicillin 2022-06 00:00: 00 No amoxicilli n [facility] amoxicillin (TRIMOX) capsule 500 mg 2022-06 21:30: 00 06-18 21:41 :00 No 500mg 500 mg, Oral, ONCE, 1 dose, On 06/18/23 at 1530, ELVIS
Re ason for Anti-Infec tive: Documented Infection< br>Documen noa Infection Site: HEENT
D uration of Therapy: 10 days [facility] ibuprofen 600 mg tablet 2022-06 00:00: 00 Yes [id number] 600mg Take 1 tablet by mouth every 6 (six) hours as needed for Pain (scale 4-6). [facility] amoxicillin 500 mg capsule 2022-06 00:00: 00 06-29 05:59 :00 No [id number] 500mg Take 1 capsule by mouth in the morning and 1 capsule at noon and 1 capsule in the evening. Do all this for 10 days. [facility] naproxen sodium 550 mg tablet 08 00:00: 00 Yes [id number] 550mg Take 1 tablet by mouth in the morning and 1 tablet in the evening. Take with meals. [facility] vits62/FA/o m3/dha/epa ( GUMMY ORAL) 08-14 12:22: 35 08-14 00:00 :00 No Take by mouth. [facility] vitamin w/FA tablet 08-14 00:00: 00 Yes [id number] 1{tbl} Take 1 tablet by mouth in the morning. [facility] vitamin w/FA tablet 08-14 00:00: 00 Yes [id number] 1{tbl} Take 1 tablet by mouth in the morning. [facility] docusate 100 mg capsule 08-14 00:00: 00 Yes [id number] 200mg Take 2 capsules by mouth once daily as needed for Constipati on. [facility] ferrous sulfate 325 mg (65 mg iron) tablet 08-14 00:00: 00 Yes [id number] 325mg Take 1 tablet by mouth in the morning and 1 tablet in the evening. [facility] ibuprofen 600 mg tablet 08-14 00:00: 00 Yes [id number] 102 600mg Take 1 tablet by mouth every 6 (six) hours as needed (Pain). Take with food or milk. [facility] HYDROcodone -acetaminop hen (NORCO 5) 5-325 mg tablet 1 tablet 08-13 18:08: 53 Yes 1{tbl} 1 tablet, Oral, Q6HPRN, Starting on Tue08/13/22 at 1208, Until Discontinu ed, Routine, Pain (scale 7-10) [facility] ibuprofen (IBU) tablet 600 mg 08-13 18:08: 53 Yes 600mg 600 mg, Oral, Q6HPRN, Starting on Tue08/13/22 at 1208, Until Discontinu ed, Routine, Pain (scale 4-6) [facility] acetaminoph en (TYLENOL) tablet 650 mg 08-13 18:08: 53 Yes 650mg 650 mg, Oral, Q6HPRN, Starting on Tue08/13/22 at 1208, Until Discontinu ed, Routine, Pain (scale 1-3) [facility] diphenhydrA MINE (BENADRYL) tablet 25 mg 08-13 18:08: 53 Yes 25mg 25 mg, Oral, Q6HPRN, Starting on Tue08/13/22 at 1208, Until Discontinu ed, Routine, Sleep, Itching [facility] ondansetron (ZOFRAN (PF)) injection 4 mg 08-13 18:08: 53 Yes 4mg 4 mg, Slow IV Push, Q8HPRN, Starting on Tue08/13/22 at 1208, Until Discontinu ed, Routine, Nausea and Vomiting (N/V) [facility] simethicone (GAS RELIEF (SIMETHICON E)) chewable tablet 160 mg 08-13 18:08: 53 Yes 160mg 160 mg, Oral, PC+HSPRN, Starting on Tue08/13/22 at 1208, Until Discontinu ed, Routine, Gas [facility] docusate (COLACE) capsule 200 mg 08-13 18:08: 52 Yes 200mg 200 mg, Oral, QDAILYPRN, Starting on Tue08/13/22 at 1208, Until Discontinu ed, Routine, Constipati on [facility] magnesium hydroxide (MILK OF MAGNESIA) 400 mg/5 mL suspension 30 mL 08-13 18:08: 52 Yes 30mL 30 mL, Oral, QDAILYPRN, Starting on Tue08/13/22 at 1208, Until Discontinu ed, Routine, Constipati on [facility] benzocaine- menthol (DERMOPLAST ) 20-0.5 % topical spray 08-13 18:08: 52 Yes Topical, PRN, Starting on Tue08/13/22 at 1208, Until Discontinu ed, Routine, Perineum discomfort [facility] PIB fentaNYL-ro pivacaine 2 mcg/mL-0.1 % (PF) in NS 200 mL epidural infusion RTU 08-13 13:20: 00 Yes Epidural, CONTINUOUS PRN, Starting on Tue08/13/22 at 0720, Until Discontinu ed, Routine, Intra-op [facility] lidocaine 1% (XYLOCAINE) 100 mg/10 mL (1 %) injection 08-13 13:02: 00 Yes Infiltrati on, ONCE INTRA PROCEDURE, Starting on Tue08/13/22 at 0702, Until Discontinu ed, Routine, Intra-op [facility] ondansetron (ZOFRAN (PF)) injection 4 mg 08-13 07:37: 19 08-13 18:10 :15 No 4mg 4 mg, Slow IV Push, Q6HPRN, Starting on Tue08/13/22 at 0137, Until Tue08/13/22 at 1210, Routine, Nausea and Vomiting (N/V) [facility] FENTanyl PF (SUBLIMAZE (PF)) injection 100 mcg 08-13 07:37: 19 08-13 18:10 :15 No 100ug 100 mcg, Slow IV Push, Q1HPRN, Starting on Tue08/13/22 at 0137, Until Tue08/13/22 at 1210, Routine, Pain (scale 4-6), Pain (scale 7-10) [facility] oxytocin (PITOCIN) 30 units in NS 500 mL IV infusion 08-13 07:37: 19 08-13 18:10 :15 No 2mU/min at 2-40 mL/hr, IV Infusion, TITRATE, Starting on Tue08/13/22 at 0137, Until Tue08/13/22 at 1210, ELVIS [facility] lactated ringers IV infusion 500 mL 08-13 07:37: 19 08-13 18:10 :15 No 500mL at 999 mL/hr, 500 mL, IV Infusion, PRN - SEE INSTRUCTIO NS, Starting on Tue08/13/22 at 0137, Until Tue08/13/22 at 1210, Routine [facility] D5W-LR IV infusion 1,000 mL 08-13 07:37: 08-13 18:10 :15 No 1000mL at 1-125 mL/hr, IV Infusion, TITRATE, Starting on Tue08/13/22 at 0137, Until Tue08/13/22 at 1210, Routine [facility] vits62/FA/o m3/dha/epa ( GUMMY ORAL) 08-13 06:18: 15 Yes Take by mouth. [facility] ferrous sulfate 325 mg (65 mg iron) tablet 08-01 00:00: 00 08-14 00:00 :00 No [id number] 325mg Take 1 tablet by mouth in the morning and 1 tablet in the evening. [facility] Nitrofurant oin&Nit. Macrocryst 100 mg capsule 01-15 00:00: 00 02-23 00:00 :00 No [id number] 100mg Take 1 capsule by mouth in the morning and 1 capsule in the evening. [facility] proMETHazin e 12.5 mg tablet 01-12 00:00: 00 Yes [id number] 12.5mg Take 1 tablet by mouth every 4 (four) hours as needed for Nausea and Vomiting (N/V). [facility] ondansetron 4 mg disintegrat ing tablet 7 00:00: 00 Yes [id number] 4mg Take 1 tablet by mouth every 8 (eight) hours as needed for Nausea and Vomiting (N/V). [facility] cephALEXin 500 mg tablet 17 00:00: 00 01-12 00:00 :00 No [id number] 500mg Take 1 tablet by mouth 2 (two) times daily. [facility] hydrocortis one 1 % cream 6-15 00:00: 00 01-12 00:00 :00 No [id number] Apply to affected area(s) 2 (two) times daily. [facility] vits62/FA/o m3/dha/epa ( GUMMY ORAL) 1-13 16:08: 30 Yes Take by mouth. [facility] Immunizations Ordered Immunization Name Filled Immunization Name Date Status Comments Source TDAP 2022-06-15 00:00:00 Completed [facility] TDAP 2022-06-15 00:00:00 Completed [facility] TDAP 2022-06-15 00:00:00 Completed [facility] TDAP 2022-06-15 00:00:00 Completed [facility] TDAP 2022-06-15 00:00:00 Completed [facility] TDAP 2022-06-15 00:00:00 Completed [facility] TDAP 2022-06-15 00:00:00 Completed [facility] TDAP 2022-06-15 00:00:00 Completed [facility] TDAP 2022-06-15 00:00:00 Completed [facility] TDAP 2022-06-15 00:00:00 Completed [facility] TDAP 2022-06-15 00:00:00 Completed [facility] TDAP 2022-06-15 00:00:00 Completed [facility] TDAP 2022-06-15 00:00:00 Completed [facility] TDAP 2022-06-15 00:00:00 Completed [facility] TDAP 2022-06-15 00:00:00 Completed [facility] TDAP 2022-06-15 00:00:00 Completed [facility] TDAP 2022-06-15 00:00:00 Completed Influenza Virus Vaccine Quad IM, Preserv and ABX Free 6 MO-64 YRS 2022-04-01 00:00:00 Completed [facility] Influenza Virus Vaccine Quad IM, Preserv and ABX Free 6 MO-64 YRS 2022-04-01 00:00:00 Completed [facility] Influenza Virus Vaccine Quad IM, Preserv and ABX Free 6 MO-64 YRS 2022-04-01 00:00:00 Completed [facility] Influenza Virus Vaccine Quad IM, Preserv and ABX Free 6 MO-64 YRS 2022-04-01 00:00:00 Completed [facility] Influenza Virus Vaccine Quad IM, Preserv and ABX Free 6 MO-64 YRS 2022-04-01 00:00:00 Completed [facility] Influenza Virus Vaccine Quad IM, Preserv and ABX Free 6 MO-64 YRS 2022-04-01 00:00:00 Completed [facility] Influenza Virus Vaccine Quad IM, Preserv and ABX Free 6 MO-64 YRS 2022-04-01 00:00:00 Completed [facility] Influenza Virus Vaccine Quad IM, Preserv and ABX Free 6 MO-64 YRS 2022-04-01 00:00:00 Completed [facility] Influenza Virus Vaccine Quad IM, Preserv and ABX Free 6 MO-64 YRS 2022-04-01 00:00:00 Completed [facility] Influenza Virus Vaccine Quad IM, Preserv and ABX Free 6 MO-64 06 00:00:00 Completed [facility] Influenza Virus Vaccine Quad IM, Preserv and ABX Free 6 MO-64 YRS 2022-04-01 00:00:00 Completed [facility] Influenza Virus Vaccine Quad IM, Preserv and ABX Free 6 MO-64 YRS 2022-04-01 00:00:00 Completed [facility] Influenza Virus Vaccine Quad IM, Preserv and ABX Free 6 MO-64 YRS 2022-04-01 00:00:00 Completed [facility] Influenza Virus Vaccine Quad IM, Preserv and ABX Free 6 MO-64 YRS 2022-04-01 00:00:00 Completed [facility] Influenza Virus Vaccine Quad IM, Preserv and ABX Free 6 MO-64 YRS 2022-04-01 00:00:00 Completed [facility] Influenza Virus Vaccine Quad IM, Preserv and ABX Free 6 MO-64 YRS 2022-04-01 00:00:00 Completed [facility] Influenza Virus Vaccine Quad IM, Preserv and ABX Free 6 MO-64 YRS 2022-04-01 00:00:00 Completed [facility] Influenza Virus Vaccine Quad IM, Preserv and ABX Free 6 MO-64 YRS 2022-04-01 00:00:00 Completed [facility] Influenza Virus Vaccine Quad IM, Preserv and ABX Free 6 MO-64 YRS 2022-04-01 00:00:00 Completed [facility] Influenza Virus Vaccine Quad IM, Preserv and ABX Free 6 MO-64 YRS 2022-04-01 00:00:00 Completed [facility] Influenza Virus Vaccine Quad IM, Preserv and ABX Free 6 MO-64 YRS 2022-04-01 00:00:00 Completed [facility] Influenza Virus Vaccine Quad IM, Preserv and ABX Free 6 MO-64 YRS 2022-04-01 00:00:00 Completed [facility] Influenza Virus Vaccine Quad IM, Preserv and ABX Free 6 MO-64 YRS (FLUCELVAX) 2022-04-01 00:00:00 Completed [facility] TDAP 2020-08-22 00:00:00 Completed [facility] TDAP 2020-08-22 00:00:00 Completed [facility] TDAP 2020-08-22 00:00:00 Completed [facility] TDAP 2020-08-22 00:00:00 Completed [facility] TDAP 2020-08-22 00:00:00 Completed [facility] TDAP 2020-08-22 00:00:00 Completed [facility] TDAP 2020-08-22 00:00:00 Completed [facility] TDAP 2020-08-22 00:00:00 Completed [facility] TDAP 2020-08-22 00:00:00 Completed [facility] TDAP 2020-08-22 00:00:00 Completed [facility] TDAP 2020-08-22 00:00:00 Completed [facility] TDAP 2020-08-22 00:00:00 Completed [facility] TDAP 2020-08-22 00:00:00 Completed [facility] TDAP 2020-08-22 00:00:00 Completed [facility] TDAP 2020-08-22 00:00:00 Completed [facility] TDAP 2020-08-22 00:00:00 Completed [facility] TDAP 2020-08-22 00:00:00 Completed [facility] TDAP 2020-08-22 00:00:00 Completed [facility] TDAP 2020-08-22 00:00:00 Completed [facility] TDAP 2020-08-22 00:00:00 Completed [facility] TDAP 2020-08-22 00:00:00 Completed [facility] TDAP 2020-08-22 00:00:00 Completed [facility] TDAP 2020-08-22 00:00:00 Completed [facility] TDAP 2020-08-22 00:00:00 Completed [facility] TDAP 2020-08-22 00:00:00 Completed [facility] TDAP 2020-08-22 00:00:00 Completed [facility] TDAP 2020-08-22 00:00:00 Completed [facility] TDAP 2020-08-22 00:00:00 Completed [facility] TDAP 2020-08-22 00:00:00 Completed [facility] Influenza Virus Vaccine Quad .5 mL IM 6+ MO 2020-04-22 00:00:00 Completed [facility] Influenza Virus Vaccine Quad .5 mL IM 6+ MO 2020-04-22 00:00:00 Completed [facility] Influenza Virus Vaccine Quad .5 mL IM 6+ MO 2020-04-22 00:00:00 Completed [facility] Influenza Virus Vaccine Quad .5 mL IM 6+ MO 2020-04-22 00:00:00 Completed [facility] Influenza Virus Vaccine Quad .5 mL IM 6+ MO 2020-04-22 00:00:00 Completed [facility] Influenza Virus Vaccine Quad .5 mL IM 6+ MO 2020-04-22 00:00:00 Completed [facility] Influenza Virus Vaccine Quad .5 mL IM 6+ MO 2020-04-22 00:00:00 Completed [facility] Influenza Virus Vaccine Quad .5 mL IM 6+ MO 2020-04-22 00:00:00 [facility] [facility] Influenza Virus Vaccine Quad .5 mL IM 6+ MO 2020-04-22 00:00:00 Completed [facility] Influenza Virus Vaccine Quad .5 mL IM 6+ MO 2020-04-22 00:00:00 Completed [facility] Influenza Virus Vaccine Quad .5 mL IM 6+ MO 2020-04-22 00:00:00 Completed [facility] Influenza Virus Vaccine Quad .5 mL IM 6+ MO 2020-04-22 00:00:00 Completed [facility] Influenza Virus Vaccine Quad .5 mL IM 6+ MO 2020-04-22 00:00:00 Completed [facility] Influenza Virus Vaccine Quad .5 mL IM 6+ MO 2020-04-22 00:00:00 Completed [facility] Influenza Virus Vaccine Quad .5 mL IM 6+ MO 2020-04-22 00:00:00 Completed [facility] Influenza Virus Vaccine Quad .5 mL IM 6+ MO 2020-04-22 00:00:00 Completed [facility] Influenza Virus Vaccine Quad .5 mL IM 6+ MO 2020-04-22 00:00:00 Completed [facility] Influenza Virus Vaccine Quad .5 mL IM 6+ MO 2020-04-22 00:00:00 Completed [facility] Influenza Virus Vaccine Quad .5 mL IM 6+ MO 2020-04-22 00:00:00 Completed [facility] Influenza Virus Vaccine Quad .5 mL IM 6+ MO 2020-04-22 00:00:00 Completed [facility] Influenza Virus Vaccine Quad .5 mL IM 6+ MO 2020-04-22 00:00:00 Completed [facility] Influenza Virus Vaccine Quad .5 mL IM 6+ MO 2020-04-22 00:00:00 Completed [facility] Influenza Virus Vaccine Quad .5 mL IM 6+ MO 2020-04-22 00:00:00 Completed [facility] Influenza Virus Vaccine Quad .5 mL IM 6+ MO 2020-04-22 00:00:00 Completed [facility] Influenza Virus Vaccine Quad .5 mL IM 6+ MO 2020-04-22 00:00:00 Completed [facility] Influenza Virus Vaccine Quad .5 mL IM 6+ MO 2020-04-22 00:00:00 Completed [facility] Influenza Virus Vaccine Quad .5 mL IM 6+ MO 2020-04-22 00:00:00 Completed [facility] Influenza Virus Vaccine Quad .5 mL IM 6+ MO 2020-04-22 00:00:00 Completed [facility] Influenza Virus Vaccine Quad .5 mL IM 6+ MO (FLUZONE/FLULAVAL/F LUARIX) 2020-04-22 00:00:00 Completed [facility] Influenza Virus Vaccine Quad .5 mL IM 6+ MO (FLUZONE/FLULAVAL/F LUARIX) Unknown Completed [facility] Influenza Virus Vaccine Quad .5 mL IM 6+ MO (FLUZONE/FLULAVAL/F LUARIX) Unknown Completed [facility] TDAP Unknown Completed [facility] Influenza Virus Vaccine Quad IM, Preserv and ABX Free 6 MO-64 YRS (FLUCELVAX) Unknown Completed [facility] Influenza Virus Vaccine Quad .5 mL IM 6+ MO (FLUZONE/FLULAVAL/F LUARIX) Unknown Completed [facility] TDAP Unknown Completed [facility] Influenza Virus Vaccine Quad IM, Preserv and ABX Free 6 MO-64 YRS (FLUCELVAX) Unknown Completed [facility] Influenza Virus Vaccine Quad .5 mL IM 6+ MO (FLUZONE/FLULAVAL/F LUARIX) Unknown Completed [facility] TDAP Unknown Completed [facility] Influenza Virus Vaccine Quad IM, Preserv and ABX Free 6 MO-64 YRS (FLUCELVAX) Unknown Completed [facility] Vital Signs Vital Name Observation Time Observation Value Comments S ource Body temperature 2024-10-08 18:03:00 36.83 Eda [facility] Body height 2024-10-08 18:03:00 154.9 cm [facility] Body weight 2024-10-08 18:03:00 49.125 kg [facility] BMI 2024-10-08 18:03:00 20.46 kg/m2 [facility] Systolic blood pressure 2024-09-24 21:52:00 113 mm[Hg] [facility] Diastolic blood pressure 2024-09-24 21:52:00 70 mm[Hg] [facility] Heart rate 2024-09-24 21:52:00 84 /min [facility] Body temperature 2024-09-24 21:52:00 37.22 Eda [facility] Respiratory rate 2024-09-24 21:52:00 16 /min [facility] Body height 2024-09-24 21:52:00 154.9 cm [facility] Body weight 2024-09-24 21:52:00 50.032 kg [facility] BMI 2024-09-24 21:52:00 20.84 kg/m2 [facility] Oxygen saturation in Arterial blood by Pulse oximetry 2024-09-24 21:52:00 99 /min [facility] Systolic blood pressure 2024-09-18 04:22:00 115 mm[Hg] [facility] Diastolic blood pressure 2024-09-18 04:22:00 69 mm[Hg] [facility] Heart rate 2024-09-18 04:22:00 82 /[facility] Body temperature 2024-09-18 04:22:00 36.83 Eda [facility] Respiratory rate 2024-09-18 04:22:00 16 /min [facility] Oxygen saturation in Arterial blood by Pulse oximetry 2024-09-18 04:22:00 100 /min [facility] Body height 2024-09-18 02:53:[address] [facility] Body weight 2024-09-18 02:53:00 49.896 kg [facility] BMI 2024-09-18 02:53:00 20.78 kg/m2 [facility] Systolic blood pressure 2024-08-28 22:27:00 105 mm[Hg] [facility] Diastolic blood pressure 2024-08-28 22:27:00 67 mm[Hg] [facility] Heart rate 2024-08-28 22:27:00 93 /min [facility] Body temperature 2024-08-28 22:27:00 36.94 Eda [facility] Respiratory rate 2024-08-28 22:27:00 17 /min [facility] Body height 2024-08-28 22:27:[address] [facility] Body weight 2024-08-28 22:27:00 49.896 kg [facility] BMI 2024-08-28 22:27:00 20.78 kg/m2 [facility] Oxygen saturation in Arterial blood by Pulse oximetry 2024-08-28 22:27:00 97 /min [facility] Systolic blood pressure 2024-08-27 22:07:00 111 mm[Hg] [facility] Diastolic blood pressure 2024-08-27 22:07:00 71 mm[Hg] [facility] Heart rate 2024-08-27 22:07:00 94 /min [facility] Body temperature 2024-08-27 22:07:00 36.83 Eda [facility] Respiratory rate 2024-08-27 22:07:00 18 /min [facility] Body height 2024-08-27 22:07:[address] [facility] Body weight 2024-08-27 22:07:[address] [facility] BMI 2024-08-27 22:07:00 21.28 kg/m2 [facility] Oxygen saturation in Arterial blood by Pulse oximetry 2024-08-27 22:07:00 98 /min [facility] Body Weight 2024-07-10 00:00:00 105 [lb_av] [facility] BP Diastolic 2024-07-10 00:00:00 73 mm[Hg] [facility] Height 2024-07-10 00:00:00 61 [in_i] [facility] BMI (Body Mass Index) 2024-07-10 00:00:00 19.8 kg/m2 [facility] BP Systolic 2024-07-10 00:00:00 110 mm[Hg] [facility] Systolic blood pressure 2024-06-29 22:37:00 112 mm[Hg] [facility] Diastolic blood pressure 2024-06-29 22:37:00 72 mm[Hg] [facility] Heart rate 2024-06-29 22:37:00 103 /min [facility] Body temperature 2024-06-29 22:37:00 36.78 Eda [facility] Respiratory rate 2024-06-29 22:37:00 21 /min [facility] Body height 2024-06-29 22:37:00 154.9 cm [facility] Body weight 2024-06-29 22:37:00 48.444 kg [facility] BMI 2024-06-29 22:37:00 20.18 kg/m2 [facility] Oxygen saturation in Arterial blood by Pulse oximetry 2024-06-29 22:37:00 98 /min [facility] BMI (Body Mass Index) 2024-04-06 00:00:00 20.1 kg/m2 [facility] BP Diastolic 2024-04-06 00:00:00 63 mm[Hg] [facility] Body Weight 2024-04-06 00:00:00 106.4 [lb_av] [facility] BP Systolic 2024-04-06 00:00:00 103 mm[Hg] [facility] Height 2024-04-06 00:00:00 61 [in_i] [facility] BP Systolic 2024-03-09 00:00:00 110 mm[Hg] [facility] BP Diastolic 2024-03-09 00:00:00 62 mm[Hg] [facility] BMI (Body Mass Index) 2024-03-09 00:00:00 19.5 kg/m2 [facility] Height 2024-03-09 00:00:00 61 [in_i] [facility] Body Weight 2024-03-09 00:00:00 103.4 [lb_av] [facility] BP Diastolic 2024-03-02 00:00:00 63 mm[Hg] [facility] Height 2024-03-02 00:00:00 61 [in_i] [facility] Body Weight 2024-03-02 00:00:00 103.4 [lb_av] [facility] BMI (Body Mass Index) 2024-03-02 00:00:00 19.5 kg/m2 [facility] BP Systolic 2024-03-02 00:00:00 107 mm[Hg] [facility] Height 2024-02-24 00:00:00 61 [in_i] [facility] BP Diastolic 2024-02-24 00:00:00 67 mm[Hg] [facility] Body Weight 2024-02-24 00:00:00 105.2 [lb_av] [facility] BP Systolic 2024-02-24 00:00:00 104 mm[Hg] [facility] BMI (Body Mass Index) 2024-02-24 00:00:00 19.9 kg/m2 [facility] Systolic blood pressure 2024-02-23 23:24:00 116 mm[Hg] [facility] Diastolic blood pressure 2024-02-23 23:24:00 76 mm[Hg] [facility] Heart rate 2024-02-23 23:24:00 97 /[facility] 2024-02-23 23:24:00 37.11 Eda [facility] Respiratory rate 2024-02-23 23:24:00 13 /min [facility] Body height 2024-02-23 23:24:00 154.9 cm [facility] weight 2024-02-23 23:24:00 47.31 kg [facility] BMI 2024-02-23 23:24:00 19.71 kg/m2 [facility] Oxygen saturation in Arterial blood by Pulse oximetry 2024-02-23 23:24:00 100 /min [facility] BMI (Body Mass Index) 2024-02-15 00:00:00 19.9 kg/m2 [facility] BP Diastolic 2024-02-15 00:00:00 63 mm[Hg] [facility] Body Weight 2024-02-15 00:00:00 105.2 [lb_av] [facility] Height 2024-02-15 00:00:00 61 [in_i] [facility] BP Systolic 2024-02-15 00:00:00 106 mm[Hg] [facility] Systolic 2023-06-23 00:00:00 108 mm[Hg] [facility] Height 2023-06-23 00:00:00 71 [in_i] [facility] BP Diastolic 2023-06-23 00:00:00 67 mm[Hg] [facility] BMI (Body Mass Index) 2023-06-23 00:00:00 15.2 kg/m2 [facility] Body Weight 2023-06-23 00:00:00 1745 [oz_av] [facility] Systolic blood pressure 2023-06-18 20:54:00 125 mm[Hg] [facility] Diastolic blood pressure 2023-06-18 20:54:00 78 mm[Hg] [facility] Heart rate 2023-06-18 20:54:00 76 /min [facility] Body temperature 2023-06-18 20:54:00 37.28 Eda [facility] Respiratory rate 2023-06-18 20:54:00 16 /min [facility] Body height 2023-06-18 20:54:00 154.9 cm [facility] Body weight 2023-06-18 20:54:00 49.896 kg [facility] BMI 2023-06-18 20:54:00 20.78 kg/m2 [facility] Oxygen saturation in Arterial blood by Pulse oximetry 2023-06-18 20:54:00 100 /min [facility] Systolic blood pressure 2022-12-03 05:30:00 121 mm[Hg] [facility] Diastolic blood pressure 2022-12-03 05:30:00 65 mm[Hg] [facility] Heart rate 2022-12-03 05:30:00 94 /min [facility] Respiratory rate 2022-12-03 05:30:00 20 /min [facility] Oxygen saturation in Arterial blood by Pulse oximetry 2022-12-03 05:30:00 98 /min [facility] Body temperature 2022-12-03 02:14:00 37.39 Eda [facility] Body height 2022-12-03 02:14:[address] [facility] Body weight 2022-12-03 02:14:00 49.442 kg [facility] BMI 2022-12-03 02:14:00 20.60 kg/m2 [facility] Systolic blood pressure 2022-09-08 18:25:00 101 mm[Hg] [facility] Diastolic blood pressure 2022-09-08 18:25:00 66 mm[Hg] [facility] Heart rate 2022-09-08 18:25:00 97 /min [facility] Body temperature 2022-09-08 18:25:00 36.67 Eda [facility] Body height 2022-09-08 18:25:[address] [facility] Body weight 2022-09-08 18:25:[address] [facility] BMI 2022-09-08 18:25:00 20.60 kg/m2 [facility] Systolic blood pressure 2022-08-14 22:23:00 116 mm[Hg] [facility] Diastolic blood pressure 2022-08-14 22:23:00 75 mm[Hg] [facility] Heart rate 2022-08-14 22:23:00 86 /min [facility] Body temperature 2022-08-14 22:23:00 36.83 Eda [facility] Respiratory rate 2022-08-14 22:23:00 18 /min [facility] Oxygen saturation in Arterial blood by Pulse oximetry 2022-08-14 22:23:00 100 /min [facility] Body height 2022-08-13 07:52:[address] [facility] Body weight 2022-08-13 07:52:00 55.339 kg [facility] BMI 2022-08-13 07:52:00 23.05 kg/m2 [facility] Systolic blood pressure 2022-08-10 14:43:00 112 mm[Hg] [facility] Diastolic blood pressure 2022-08-10 14:43:00 73 mm[Hg] [facility] Heart rate 2022-08-10 14:43:00 86 /min [facility] Body temperature 2022-08-10 14:43:00 36.78 Eda [facility] Respiratory rate 2022-08-10 14:43:00 18 /min [facility] Body height 2022-08-10 14:43:[address] [facility] Body weight 2022-08-10 14:43:00 54.885 kg [facility] BMI 2022-08-10 14:43:00 22.86 kg/m2 [facility] Systolic blood pressure 2022-08-04 19:10:00 109 mm[Hg] [facility] Diastolic blood pressure 2022-08-04 19:10:00 72 mm[Hg] [facility] Heart rate 2022-08-04 19:10:00 80 /min [facility] Body temperature 2022-08-04 19:10:00 36.78 Eda [facility] Respiratory rate 2022-08-04 19:10:00 18 /min [facility] Body height 2022-08-04 19:10:[address] [facility] Body weight 2022-08-04 19:10:00 55.566 kg [facility] BMI 2022-08-04 19:10:00 23.15 kg/m2 [facility] Systolic blood pressure 2022-07-28 17:27:00 117 mm[Hg] [facility] Diastolic blood pressure 2022-07-28 17:27:00 70 mm[Hg] [facility] Heart rate 2022-07-28 17:27:00 100 /min [facility] Body temperature 2022-07-28 17:27:00 36.72 Eda [facility] Respiratory rate 2022-07-28 17:27:00 18 /min [facility] Body height 2022-07-28 17:27:[address] [facility] Body weight 2022-07-28 17:27:00 57.561 kg [facility] BMI 2022-07-28 17:27:00 23.98 kg/m2 [facility] Systolic blood pressure 2022-07-13 19:01:00 113 mm[Hg] [facility] Diastolic blood pressure 2022-07-13 19:01:00 75 mm[Hg] [facility] Heart rate 2022-07-13 19:01:00 103 /min [facility] Body temperature 2022-07-13 19:01:00 36.72 Eda [facility] Respiratory rate 2022-07-13 19:01:00 18 /min [facility] Body height 2022-07-13 19:01:[address] [facility] Body weight 2022-07-13 19:01:00 55.339 kg [facility] BMI 2022-07-13 19:01:00 23.05 kg/m2 [facility] Systolic blood pressure 2022-06-29 16:44:00 118 mm[Hg] [facility] Diastolic blood pressure 2022-06-29 16:44:00 75 mm[Hg] [facility] Heart rate 2022-06-29 16:44:00 102 /min [facility] Body temperature 2022-06-29 16:44:00 36.61 Eda [facility] Respiratory rate 2022-06-29 16:44:00 18 /min [facility] Body height 2022-06-29 16:44:[address] [facility] Body weight 2022-06-29 16:44:[address] [facility] BMI 2022-06-29 16:44:00 22.98 kg/m2 [facility] Systolic blood pressure 2022-06-15 16:58:00 124 mm[Hg] [facility] Diastolic blood pressure 2022-06-15 16:58:00 74 mm[Hg] [facility] Heart rate 2022-06-15 16:58:00 102 /min [facility] Body temperature 2022-06-15 16:58:00 36.56 Eda [facility] Respiratory rate 2022-06-15 16:58:00 18 /min [facility] Body height 2022-06-15 16:58:[address] [facility] Body weight 2022-06-15 16:58:[address] [facility] BMI 2022-06-15 16:58:00 22.86 kg/m2 [facility] Systolic blood pressure 2022-06-01 19:37:00 108 mm[Hg] [facility] Diastolic blood pressure 2022-06-01 19:37:00 63 mm[Hg] [facility] Heart rate 2022-06-01 19:37:00 102 /min [facility] Body temperature 2022-06-01 19:37:00 36.89 Eda [facility] Respiratory rate 2022-06-01 19:37:00 16 /min [facility] Body height 2022-06-01 19:37:00 154.9 cm [facility] Body weight 2022-06-01 19:37:00 53.479 kg [facility] BMI 2022-06-01 19:37:00 22.28 kg/m2 [facility] Oxygen saturation in Arterial blood by Pulse oximetry 2022-06-01 19:37:00 99 /min [facility] Systolic blood pressure 2022-04-01 19:07:00 99 mm[Hg] [facility] Diastolic blood pressure 2022-04-01 19:07:00 65 mm[Hg] [facility] Heart rate 2022-04-01 19:07:00 99 /min [facility] Body temperature 2022-04-01 19:07:00 36.78 Eda [facility] Respiratory rate 2022-04-01 19:07:00 16 /min [facility] Body height 2022-04-01 19:07:[address] [facility] Body weight 2022-04-01 19:07:00 49.805 kg [facility] BMI 2022-04-01 19:07:00 20.75 kg/m2 [facility] Systolic blood pressure 2022-02-23 14:56:00 105 mm[Hg] [facility] Diastolic blood pressure 2022-02-23 14:56:00 68 mm[Hg] [facility] Heart rate 2022-02-23 14:56:00 89 /min [facility] Body temperature 2022-02-23 14:56:00 36.78 Eda [facility] Respiratory rate 2022-02-23 14:56:00 18 /min [facility] Body height 2022-02-23 14:56:[address] [facility] Body weight 2022-02-23 14:56:[address] [facility] BMI 2022-02-23 14:56:00 20.60 kg/m2 [facility] Systolic blood pressure 2022-01-12 15:55:00 107 mm[Hg] [facility] Diastolic blood pressure 2022-01-12 15:55:00 67 mm[Hg] [facility] Heart rate 2022-01-12 15:55:00 88 /min [facility] Body temperature 2022-01-12 15:55:00 36.83 Eda [facility] Respiratory rate 2022-01-12 15:55:00 16 /min [facility] Body height 2022-01-12 15:55:00 154.9 cm [facility] Body weight 2022-01-12 15:55:00 49.351 kg [facility] BMI 2022-01-12 15:55:00 20.56 kg/m2 [facility] Procedures Procedure Date / Time Performed Performing Clinician Source POCT MOLECULAR STREP 2024-09-24 22:07:00 Unknown, Attlotus byrd [facility] RAPID STREP SCREEN FOR GROUP A 2024-09-18 03:12:00 Allison Remy [facility] INFLUENZA A/B RSV COVID NAAT 2024-09-18 03:12:00 Allison Remy [facility] POCT MOLECULAR STREP 2024-08-28 22:24:00 Unknown, Attlotus byrd [facility] POCT MOLECULAR FLU 2024-08-27 22:08:00 Unknown, Attend [facility] POCT MOLECULAR FLU 2024-06-29 22:51:00 Unknown, Attend [facility] POCT MOLECULAR STREP 2024-06-29 22:46:00 Unknown, Attlotus byrd [facility] POCT SARS-COV-2 ANTIGEN (BINAX NOW) 2024-02-23 23:42:00 Zulema Antonio [facility] POCT MOLECULAR STREP 2024-02-23 23:30:00 Unknown, Attlotus byrd [facility] ASSIGNMENT OF BENEFITS 2023-06-18 21:30:03 Docto r Unassigned, [place] [facility] CONSENT/REFUSAL FOR DIAGNOSIS AND TREATMENT 2023-06-18 20:47:24 Doctor Unassigned, [place] [facility] ASSIGNMENT OF BENEFITS 2022-12-03 04:38:15 Docto r Unassigned, [place] [facility] XR CHEST 1 VW 2022-12-03 04:29:27 Lamont Flores [facility] POCT TEST 2022-12-03 04:03:00 Lamont Flores [facility] URINALYSIS 2022-12-03 03:59:00 Lamont Flores [facility] CONSENT/REFUSAL FOR DIAGNOSIS AND TREATMENT 2022-12-03 02:02:23 Doctor Unassigned, [place] [facility] PATIENT FINANCIAL POLICY 2022-09-08 18:03:46 Doctor Unassigned, [place] [facility] CBC WITH DIFF 2022-08-14 10:08:00 Adum, Tammi Nieves [facility] CENTRAL NEURAXIAL BLOCK 2022-08-13 12:57:00 Clayton Marie [facility] HB ABO GROUPING 2022-08-13 08:13:00 Adum, Tammi Silva [facility] CBC WITH DIFF 2022-08-13 08:02:00 Adum, Tammi Nieves [facility] HEPATITIS B SURFACE ANTIGEN 2022-08-13 08:02:00 Adum, Tammi Alarcon [facility] RPR (QUANTITATIVE) 2022-08-13 08:02:00 Adum, Tammi Alarcon [facility] HIV 1/2 AG-AB WITH REFLEX 2022-08-13 08:02:00 Adum, Tammi Alarcon [facility] NOTICE OF PRIVACY PRACTICES 2022-08-11 15:46:11 Doctor Unassigned, [place] [facility] CONSENT/REFUSAL FOR DIAGNOSIS AND TREATMENT 2022-08-11 15:42:11 Doctor Unassigned, [place] [facility] ASSIGNMENT OF BENEFITS 2022-08-11 15:41:53 Docto r Unassigned, [place] [facility] BIOPHYSICAL PROFILE 2022-08-10 15:56:53 Adum, Tammi Alarcon [facility] POCT URINALYSIS W/O SPECIFIC GRAVITY 2022-08-10 00:00:00 Adum, Tammi Alarcon [facility] POCT URINALYSIS W/O SPECIFIC GRAVITY 2022-08-04 00:00:00 Adum, Tammi Alarcon [facility] CBC WITH DIFF 2022-07-29 14:01:00 Adum, Tammi Nieves [facility] >14 WEEKS US LIMITED 2022-07-28 17:49:12 Adum, Tammi Alarcon [facility] DSU PRE-OP 2022-07-28 06:01:00 Doctor Unass igned, [place] [facility] [facility] POCT URINALYSIS W/O SPECIFIC GRAVITY 2022-07-28 00:00:00 Adum, Tammi Alarcon [facility] POCT URINALYSIS W/O SPECIFIC GRAVITY 2022-07-13 00:00:00 Adum, Tammi Alarcon [facility] POCT URINALYSIS W/O SPECIFIC GRAVITY 2022-06-29 00:00:00 Valente Zhang [facility] TDAP VACCINE, >11 YRS, IM 2022-06-15 17:00:13 Adum, Tammi Alarcon [facility] POCT URINALYSIS W/O SPECIFIC GRAVITY 2022-06-15 00:00:00 Adum, Tammi Alarcon [facility] CONSENT/REFUSAL FOR DIAGNOSIS AND TREATMENT 2022-06-01 18:45:09 Doctor Unassigned, [place] [facility] ASSIGNMENT OF BENEFITS 2022-06-01 18:44:52 Docto r Unassigned, [place] [facility] POCT URINALYSIS W/O SPECIFIC GRAVITY 2022-06-01 00:00:00 Adum, Tammi Alarcon [facility] FLU VACC (), 6 MO-64 YRS, .5ML, IM, QUAD (FLUCELVAX) 2022-04-01 19:52:51 Adum, Tammi Alarcon [facility] POCT URINALYSIS W/O SPECIFIC GRAVITY 2022-04-01 19:12:00 Adum, Tammi Alarcon [facility] SCANNED LAB RESULTS 2022-02-26 05:01:00 Doctor Raysa loaiza, [place] [facility] POCT URINALYSIS W/O SPECIFIC GRAVITY 2022-02-23 14:52:00 Adum, Tammi Alarcon [facility] <14 WEEKS US LIMITED 2022-01-12 17:07:48 Adum, Tammi Alarcon [facility] URINE CULTURE 2022-01-12 16:51:00 Adum, Tammi Nieves [facility] LAB ONLY PAP SMEAR-LIQUID BASED 2022-01-12 16:51:00 Adum, Tammi Alarcon [facility] PAP SMEAR-LIQUID BASED-CP 2022-01-12 16:51:00 Adum, Tammi L [facility] POCT URINALYSIS W/O SPECIFIC GRAVITY 2022-01-12 00:00:00 Tammi Mcdonough [facility] Plan of Care Planned Activity Planned Date Details Comments Source Diagnostic Test Pending 2023-06-23 00:00:00 drug screen, 14 drugs (detectimed), urine [code = drug screen, 14 drugs (detectimed), urine] [facility] Instructions [facility] Encounters Start Date/Time End Date/Time Encounter Type Admission Type Attending [facility] Care Facility Care Department Encounter ID Source 2021-04-26 17:43:19 Outpatient [facility] [id number] [facility] 2024-10-08 13:15:00 2024-10-08 13:16:54 Outpatient SENG YEN [facility] [id number] [facility] 2024-10-08 13:15:00 2024-10-08 13:16:54 Office Visit Seng Sheridan [facility] Y NERI BLDG. 1.2.840.114 350.1.13.10 4.2.7.2.686 [id number] [facility] 2024-09-24 17:00:00 2024-09-24 17:17:01 Outpatient Muriel BIBIANA ANN [facility] [id number] [facility] 2024-09-24 17:00:00 2024-09-24 17:17:01 Urgent Care SethBibiana Unknown, Attending [facility] 1.2.840.114 350.1.13.10 4.2.7.2.686 [id number] [facility] 2024-09-17 21:59:00 2024-09-17 23:46:00 Emergency ALLISON ENCISO ERICCA [facility] [id number] [facility] 2024-09-17 21:59:00 2024-09-17 23:46:00 Emergency Allison Remy [facility] 1.2840.114 350.1.13.10 4.2.7.2.686 [id number] [facility] 2024-08-28 16:20:00 2024-08-28 16:44:11 Outpatient R BIBIANA ANN [facility] [id number] [facility] 2024-08-28 16:20:00 2024-08-28 16:44:11 Urgent Care Bibiana Ann Unknown, Attending [facility] 1.840.114 350.1.13.10 4.2.7.2.686 [id number] [facility] 2024-08-27 16:00:00 2024-08-27 16:36:21 Urgent Care Serg Mendez Unknown, Attending [facility] 1.840.114 350.1.13.10 4.2.7.2.686 [id number] [facility] 2024-08-27 16:00:00 2024-08-27 16:00:00 Outpatient R SERG MENDEZ [facility] [id number] [facility] 2024-07-11 00:00:00 2024-07-11 10:12:00 Letter (Out) Campaigns, Generic Provider Campaigns, Generic Provider [facility] ([facility]IZ[facility]ETH) 1.840.114 350.1.13.10 4.2.7.2.686 [id number] [facility] 2024-07-10 00:00:00 2024-07-10 00:00:00 Gertrude Delvalle MD: [address] [place] [address] Dr Srinivasan, [address] [address], [place] [address] , Ph. [facility] - GC_GCBZW_[facility]* [id number] [facility] 2024-06-29 16:20:00 2024-06-29 17:10:50 Outpatient R BIBIANA ANN [facility] [id number] [facility] 2024-06-29 16:20:00 2024-06-29 16:40:00 Urgent Care Bibiana Ann Unknown, Attending [facility] 1.2.840.114 350.1.13.10 4.2.7.2.686 [id number] [facility] 2024-04-06 00:00:00 2024-04-06 00:00:00 JOSELIN May: [address], [address], [place] [address] , Ph. [facility] - GC_GCBZW_Daniela rivera Agustin* [id number] [facility] 2024-03-09 00:00:00 2024-03-09 00:00:00 JOSELIN May: [address], [address], [place] [address] , Ph. [facility] - GC_GCBZW_Daniela rivera Agustin* [id number] [facility] 2024-03-07 00:00:00 2024-03-07 10:17:00 Letter (Out) Campaigns, Generic Provider Campaigns, Generic Provider [facility] 1.2.840.114 350.1.13.10 4.2.7.2.686 [id number] [facility] 2024-03-02 00:00:00 2024-03-02 00:00:00 Gertrude Delvalle MD: [address], [address], [place] [address] , Ph. [facility] - GC_GCBZW_Daniela rivera Agustin* [id number] [facility] 2024-02-28 10:30:00 2024-02-28 10:30:00 Outpatient ROSMERY GONZALEZ [facility] [id number] [facility] 2024-02-24 00:00:00 2024-02-24 00:00:00 Gertrude Delvalle MD: [address], [address], [place] [address] , Ph. [facility] - GC_GCBZW_Daniela Velez* [id number] [facility] 2024-02-23 17:40:00 2024-02-23 18:00:00 Urgent Care Zulema Antonio Unknown, Attending [facility] 1.2.840.114 350.1.13.10 4.2.7.2.686 [id number] [facility] 2024-02-23 17:40:00 2024-02-23 17:40:00 Outpatient R ZULEMA ANTONIO [facility] [id number] [facility] 2024-02-15 00:00:00 2024-02-15 00:00:00 Gertrude Delvalle MD: Martha Srinivasan, [facility] [address], [place] [address] , Ph. [facility] - GC_GCBZW_Daniela nicole Velez* [id number] [facility] 2023-06-24 00:00:00 2023-06-24 00:00:00 Outpatient Hearingtest MMG MMG [id number] [facility] 2023-06-23 00:00:00 2023-06-23 00:00:00 Outpatient Shield MMG MMG [id number] 2023-06-23 00:00:00 2023-06-23 00:00:00 Camelia Giles, DIRECTOR DIETETICS DEPARTMENT: [address], [address], [place] [address] , Ph. MMG [facility] [id number] [facility] 2023-06-21 00:00:00 2023-06-21 00:00:00 Outpatient Shield MMG MMG [id number] [facility] 2023-06-18 14:58:00 2023-06-18 15:52:00 Emergency X Surinder CASTILLO [facility] [id number] [facility] 2023-06-18 14:58:00 2023-06-18 15:52:00 Emergency Surinder Castillo [facility] 1.840.114 350.1.13.10 4.2.7.2.686 [id number] [facility] 2023-02-11 18:15:00 2023-02-11 18:15:00 Outpatient R UNKNOWN, LATRICE [facility] [id number] [facility] 2022-12-02 21:18:00 2022-12-03 00:30:00 Emergency X LAMONT FLORES [facility] [id number] [facility] 2022-12-02 21:18:00 2022-12-03 00:30:00 Emergency Lamont Flores [facility] 1.840.114 350.1.13.10 4.2.7.2.686 [id number] [facility] 2022-10-08 10:00:00 2022-10-08 10:00:00 Outpatient R TAMMI MCDONOUGH [facility] [id number] [facility] 2022-09-08 13:15:00 2022-09-08 13:41:24 Outpatient R TAMMI MCDONOUGH [facility] [id number] [facility] 2022-09-08 13:15:00 2022-09-08 13:41:24 Routine Visit Tammi Mcdonough [facility] PROFESSIO [facility] 1.2.840.114 350.1.13.10 4.2.7.2.686 [id number] [facility] 2022-09-08 00:00:00 2022-09-08 00:00:00 Orders Only Doctor Unassigned, [place] [facility] 1.2.840.114 350.1.13.10 4.2.7.2.686 [id number] [facility] 2022-08-13 01:35:00 2022-08-14 17:15:00 Inpatient P ADUM, [facility] [id number] [facility] 2022-08-13 01:35:00 2022-08-14 17:15:00 [facility] 1.2.840.114 350.1.13.10 4.2.7.2.686 [id number] [facility] 2022-08-13 06:57:00 2022-08-14 08:49:00 Anesthesia Event Chuy Mejias Deepinder [facility] 1.2.840.114 350.1.13.10 4.2.7.2.686 [id number] [facility] 2022-08-13 06:50:09 2022-08-13 06:50:09 Anesthesia Event Chuy Mejias [facility] 1.2.840.114 350.1.13.10 4.2.7.2.686 [id number] [facility] 2022-08-10 08:30:00 2022-08-10 09:58:34 Outpatient R ADDAYNA [facility] [id number] [facility] 2022-08-10 08:30:00 2022-08-10 09:58:34 Routine Visit Tammi Mcdonough [facility] 1.2.840.114 350.1.13.10 4.2.7.2.686 [id number] [facility] 2022-08-04 13:15:00 2022-08-04 13:44:03 Outpatient R ADUM, [facility] [id number] [facility] 2022-08-04 13:15:00 2022-08-04 13:44:03 Routine Visit Adum, [facility] 1.20.114 350.1.13.10 4.2.7.2.686 [id number] [facility] 2022-08-01 00:00:00 2022-08-01 00:00:00 [facility] Management [facility] 1.84.114 350.1.13.10 4.2.7.2.686 [id number] [facility] 2022-07-29 08:00:00 2022-07-29 08:10:06 Vice President Network Development Visit Lab, Kendall Borrero Adum, [facility] 1.84.114 350.1.13.10 4.2.7.2.686 [id number] [facility] 2022-07-29 08:00:00 2022-07-29 08:00:00 Outpatient R ADUM, [facility] [id number] [facility] 2022-07-28 11:15:00 2022-07-28 11:30:00 Routine Visit Adum, [facility] 1.2.114 350.1.13.10 4.2.7.2.686 [id number] [facility] 2022-07-28 11:15:00 2022-07-28 11:15:00 Outpatient R ADUM, [facility] [id number] [facility] 2022-07-28 00:00:00 2022-07-28 00:00:00 Orders Only Doctor Unassigned, [place] [facility] 1.2.840.114 350.1.13.10 4.2.7.2.686 [id number] [facility] 2022-07-13 13:00:00 2022-07-13 13:10:27 Outpatient R SHARONDA TAMMI [facility] [id number] [facility] 2022-07-13 13:00:00 2022-07-13 13:10:27 Routine Visit Sharonda Tammi [facility] 1.2.840.114 350.1.13.10 4.2.7.2.686 [id number] [facility] 2022-06-29 11:00:00 2022-06-29 11:03:52 Outpatient R VALENTE ZHANG CHERYAL [facility] [id number] [facility] 2022-06-29 11:00:00 2022-06-29 11:03:52 Routine Visit Valente Zhang Tammi [facility] 1.2840.114 350.1.13.10 4.2.7.2.686 [id number] [facility] 2022-06-23 08:00:00 2022-06-23 08:28:04 Vice President Network Development Visit Ultrasound, Kendall-Karon Jaquez [facility] TRADE FACILITATOR [facility] MATERNAL & CHILD [facility] 1.2.840.114 350.1.13.10 4.2.7.2.686 [id number] [facility] 2022-06-23 08:00:00 2022-06-23 08:00:00 Outpatient P KARON GARCIA [facility] [id number] [facility] 2022-06-15 11:15:00 2022-06-15 11:16:21 Outpatient R SHARONDA [facility] [id number] [facility] 2022-06-15 11:15:00 2022-06-15 11:16:21 Routine Visit Adum, Tammi Alarcon [facility] 1.2.840.114 350.1.13.10 4.2.7.2.686 [id number] 134 [id number] [facility] 2022-06-11 08:30:00 2022-06-11 10:19:51 Vice President Network Development Visit Lab, Ang - Db Adum, [facility] 1..840.114 350.1.13.10 4.2.7.2.686 [id number] [facility] 2022-06-11 08:30:00 2022-06-11 08:30:00 Outpatient R ADDAYNA TAMMI [facility] [id number] [facility] 2022-06-09 00:00:00 2022-06-09 00:00:00 Case Management Adum, Tammi [facility] 1.2.840.114 350.1.13.10 4.2.7.2.686 [id number] [facility] 2022-06-08 08:30:00 2022-06-08 09:36:03 Vice President Network Development Visit Lab, Ang - Db Dredayna, [facility] 1..840.114 350.1.13.10 4.2.7.2.686 [id number] [facility] 2022-06-08 08:30:00 2022-06-08 08:30:00 Outpatient R ADTAMMI MCINTOSH [facility] [id number] [facility] 2022-06-01 13:15:00 2022-06-01 13:57:07 Outpatient R ADDAYNA [facility] [id number] [facility] 2022-06-01 13:15:00 2022-06-01 13:57:07 Routine Visit Addayna Tammi L [facility] 1.2840.114 350.1.13.10 4.2.7.2.686 [id number] [facility] 2022-06-01 00:00:00 2022-06-01 00:00:00 Orders Only Doctor Unassigned, [place] [facility] 1.2840.114 350.1.13.10 4.2.7.2.686 [id number] [facility] 2022-04-29 16:00:00 2022-04-29 16:00:00 Outpatient R ADUM, [facility] [id number] [facility] 2022-04-01 14:00:00 2022-04-01 14:52:44 Outpatient R ADUM, [facility] [id number] [facility] 2022-04-01 14:00:00 2022-04-01 14:52:44 [facility] 1.2840.114 350.1.13.10 4.2.7.2.686 [id number] [facility] 2022-03-31 09:30:00 2022-03-31 10:30:00 Vice President Network Development Visit Ultrasound, Yessi Yun [facility] TRADE FACILITATOR [facility] 1.2840.114 350.1.13.10 4.2.7.2.686 [id number] [facility] 2022-03-31 09:30:00 2022-03-31 09:30:00 Outpatient YSESI RAE [facility] [id number] [facility] 2022-03-23 09:30:00 2022-03-23 09:30:00 Outpatient R ADUM, [facility] [id number] [facility] 2022-03-09 00:00:00 2022-03-09 00:00:00 Telephone Adum, Tammi Alarcon [facility] 1.2.840.114 350.1.13.10 4.2.7.2.686 [id number] [facility] 2022-02-26 09:30:00 2022-02-26 09:45:00 Vice President Network Development Visit 2, Adc Lab Adum, Tammi Alarcon [facility] 1.2.840.114 350.1.13.10 4.2.7.2.686 [id number] [facility] 2022-02-26 09:30:00 2022-02-26 09:30:00 Outpatient R ADUM, TAMMI [facility] [id number] [facility] 2022-02-26 00:00:00 2022-02-26 00:00:00 Orders Only Doctor Unassigned, [place] [facility] 1.840.114 350.1.13.10 4.2.7.2.686 [id number] [facility] 2022-02-23 09:15:00 2022-02-23 10:18:37 Outpatient R ADUM, TAMMI [facility] [id number] [facility] 2022-02-23 09:15:00 2022-02-23 10:18:37 Routine Visit Adum, Tammi Alarcon [facility] 1.2.840.114 350.1.13.10 4.2.7.2.686 [id number] [facility] 2022-02-09 08:30:00 2022-02-09 08:30:00 Outpatient R ADUM, TAMMI [facility] [id number] [facility] 2022-01-15 00:00:00 2022-01-15 00:00:00 Case Management Adum, Tammi Alarcon [facility] 1.2.840.114 350.1.13.10 4.2.7.2.686 [id number] [facility] 2022-01-13 09:15:00 2022-01-13 09:30:00 Vice President Network Development Visit 2, Adc Lab AdTammi mcintosh [facility] 1..840.114 350.1.13.10 4.2.7.2.686 [id number] [facility] 2022-01-13 09:15:00 2022-01-13 09:15:00 Outpatient R ADUM, [facility] [id number] [facility] 2022-01-12 10:30:00 2022-01-12 11:44:17 Outpatient R ADDAYNA [facility] [id number] [facility] 2022-01-12 10:30:00 2022-01-12 11:44:17 Initial Visit Addayna, Tammi Alarcon [facility] 1..840.114 350.1.13.10 4.2.7.2.686 [id number] [facility] 2022-01-12 10:30:00 2022-01-12 11:44:17 Outpatient R ADUM, [facility] [id number] [facility] 2022-01-12 10:30:00 2022-01-12 10:30:00 Outpatient R ADUM, [facility] [id number] [facility] 2022-01-12 00:00:00 2022-01-12 00:00:00 Orders Only Doctor Unassigned, [place] [facility] 1..840.114 350.1.13.10 4.2.7.2.686 [id number] [facility] 2021-12-27 17:48:00 2021-12-27 19:59:00 Emergency X ALMA LOPEZ [facility] [id number] [facility] 2021-12-27 17:48:00 2021-12-27 19:59:00 Emergency Alma Lopez [facility] 1.284.114 350.1.13.10 4.2.7.2.686 [id number] [facility] 2021-12-11 19:22:00 2021-12-11 20:55:00 Emergency X JASS LEE [facility] [id number] [facility] 2021-12-11 19:22:00 2021-12-11 20:55:00 Emergency [facility] 1.84.114 350.1.13.10 4.2.7.2.686 [id number] [facility] 2021-12-09 13:06:00 2021-12-09 13:09:00 Emergency X RIA STEINER [facility] E[facility] [id number] [facility] 2021-12-09 13:06:00 2021-12-09 13:09:00 Emergency X RIA STEINER [facility] E[facility] [id number] [facility] 2021-12-09 13:06:00 2021-12-09 13:09:00 Emergency ArvindNiara Vikram [facility] 1.840.114 350.1.13.10 4.2.7.2.686 [id number] [facility] 2021-12-08 14:30:00 2021-12-08 15:50:57 Outpatient R TAMMI MCDONOUGH [facility] [id number] [facility] 2021-12-08 14:30:00 2021-12-08 15:50:57 Office Visit Tammi Mcdonough [facility] PROFESSIO [facility] 1.2.84.114 350.1.13.10 4.2.7.2.686 [id number] [facility] 2021-12-07 19:28:00 2021-12-07 21:06:00 Emergency X SINDY NAVAS [facility] E[facility] [id number] [facility] 2021-12-07 19:28:00 2021-12-07 21:06:00 Emergency Sindy Navas [facility] 1.2.840.114 350.1.13.10 4.2.7.2.686 [id number] [facility] 2021-12-07 00:00:00 2021-12-07 00:00:00 Orders Only Doctor Unassigned, [place] [facility] 1.2.840.114 350.1.13.10 4.2.7.2.686 [id number] [facility] 2021-08-05 13:30:00 2021-08-05 14:34:59 Office Visit Sharonda Tammi Dorian [facility] PROFESSIO NAL BUILDING 1.2.840.114 350.1.13.10 4.2.7.2.686 [id number] [facility] 2021-08-05 13:30:00 2021-08-05 14:34:59 Outpatient R SHARONDA [facility] [id number] [facility] 2021-08-05 13:30:00 2021-08-05 13:30:00 [facility] [id number] [facility] 2021-08-04 00:00:00 2021-08-04 00:00:00 Telephone Addayna Tammi [facility] PROFESSIO NAL BUILDING 1.2.840.114 350.1.13.10 4.2.7.2.686 [id number] [facility] 2021-07-23 16:15:00 2021-07-23 16:15:00 [facility] [id number] [facility] 2021-07-17 15:45:00 2021-07-17 17:02:30 Outpatient R ADTAMMI MCINTOSH [facility] [id number] [facility] 2021-07-17 15:45:00 2021-07-17 17:02:30 Office Visit AdTammi mcintosh [facility] 1.2.840.114 350.1.13.10 4.2.7.2.686 [id number] [facility] 2021-07-17 15:45:00 2021-07-17 17:02:30 Outpatient R ADDAYNA [facility] [id number] [facility] 2021-07-17 15:45:00 2021-07-17 15:45:00 Outpatient R ADUM TAMMI [facility] [id number] [facility] 2021-07-17 13:00:00 2021-07-17 13:00:00 Vice President [employer] Development Visit 2, Adc Lab AdTammi mcintosh [facility] 1.2.840.114 350.1.13.10 4.2.7.2.686 [id number] [facility] 2021-07-12 00:00:00 2021-07-12 00:00:00 Telephone Adum, Tammi Alarcon [facility] 1.2.840.114 350.1.13.10 4.2.7.2.686 [id number] [facility] 2021-07-10 19:18:00 2021-07-10 20:58:00 Emergency X ALMA LOPEZ [facility] ERT [id number] [facility] 2021-07-10 19:18:00 2021-07-10 20:58:00 Emergency Alma Lopez [facility] 1.2.840.114 350.1.13.10 4.2.7.2.686 [id number] [facility] 2021-07-09 16:45:00 2021-07-09 17:00:00 Vice President Network Development Visit Pob, Adc Lab Main AdTammi mcintosh [facility] 1.2.840.114 350.1.13.10 4.2.7.2.686 [id number] [facility] 2021-07-09 15:30:00 2021-07-09 16:38:35 Outpatient R ADTAMMI MCINTOSH [facility] [id number] [facility] 2021-07-09 15:30:00 2021-07-09 16:38:35 Initial Visit Tammi Mcdonough [facility] 1.2.840.114 350.1.13.10 4.2.7.2.686 [id number] [facility] 2021-07-09 00:00:00 2021-07-09 00:00:00 Orders Only Doctor Unassigned, [place] [facility] 1.2.840.114 350.1.13.10 4.2.7.2.686 [id number] [facility] 2021-06-09 08:32:05 2021-06-09 09:31:44 Office Visit AdTammi mcintosh [facility] 1.2.840.114 350.1.13.10 4.2.7.2.686 [id number] [facility] 2021-06-09 08:30:00 2021-06-09 09:31:44 Outpatient R ADTAMMI MCINTOSH [facility] [id number] [facility] 2021-05-15 16:00:00 2021-05-15 16:00:00 Outpatient R ADUMTAMMI [facility] [id number] [facility] 2021-05-15 16:00:00 2021-05-15 11:55:05 Outpatient R ADUM TAMMI [facility] [id number] [facility] 2021-05-15 10:41:32 2021-05-15 11:55:05 Office Visit SharondaTammi [facility] 1.2.840.114 350.1.13.10 4.2.7.2.686 [id number] [facility] 2021-05-15 00:00:00 2021-05-15 00:00:00 Orders Only Doctor Unassigned, [place] [facility] 1.2840.114 350.1.13.10 4.2.7.2.686 [id number] [id number] [facility] 2021-05-13 00:00:00 2021-05-13 00:00:00 Telephone Jovita Cordova [facility] 1.284.114 350.1.13.10 4.2.7.2.686 [id number] [facility] 2021-05-12 18:48:05 2021-05-12 19:03:05 Laboratory Only Only, Ang Db Test Bibiana Ann [facility] 1.2.840.114 350.1.13.10 4.2.7.2.686 [id number] [facility] 2021-05-12 19:00:00 2021-05-12 19:00:00 Outpatient R BIBIANA ANN [facility] [id number] [facility] 2020-12-19 10:24:28 2020-12-19 11:22:42 Routine Visit Sharonda Tammi Alarcon [facility] 1.2.840.114 350.1.13.10 4.2.7.2.686 [id number] 134 [id number] [facility] 2020-12-19 10:30:00 2020-12-19 10:30:00 Outpatient R TAMMI MCDONOUGH [facility] [id number] [facility] 2020-12-19 00:00:00 2020-12-19 00:00:00 Orders Only Doctor Unassigned, [place] [facility] 1.2840.114 350.1.13.10 4.2.7.2.686 [id number] [id number] [facility] 2020 16:00:55 2020 16:28:52 Routine Visit Addayna [facility] 1.20.114 350.1.13.10 4.2.7.2.686 [id number] [facility] 2020 16:00:00 2020 16:00:00 Outpatient R SHARONDA [facility] [id number] [facility] 2020-11-05 00:03:00 2020-11-07 10:45:00 Hospital Encounter Leslie, Fer Cam Addayna, [facility] 1.2840.114 350.1.13.10 4.2.7.2.686 [id number] [facility] 2020-11-05 08:22:00 2020-11-05 16:45:00 Anesthesia Event Nahum [place] Fernando [facility] 1.2840.114 350.1.13.10 4.2.7.2.686 [id number] [facility] 2020-11-05 08:42:02 2020-11-05 08:42:02 Anesthesia Event Nahum [place] [facility] 1.2840.114 350.1.13.10 4.2.7.2.686 [id number] [facility] 2020-11-04 13:40:43 2020-11-04 13:55:43 Laboratory Only Only, [facility] 1.2840.114 350.1.13.10 4.2.7.2.686 [id number] [facility] 2020-11-04 13:30:00 2020-11-04 13:30:00 Outpatient R ADUM, TAMMI [facility] [id number] [facility] 2020-10-31 08:13:52 2020-10-31 08:50:15 Routine Visit Adum, Tammi [facility] 1.2840.114 350.1.13.10 4.2.7.2.686 [id number] [facility] 2020-10-31 08:15:00 2020-10-31 08:15:00 Outpatient R ADUM, [facility] [id number] [facility] 2020-10-24 09:45:15 2020-10-24 10:23:56 [facility] 1.2840.114 350.1.13.10 4.2.7.2.686 [id number] [facility] 2020-10-24 09:45:00 2020-10-24 09:45:00 [facility] [id number] [facility] 2020-10-17 15:23:09 2020-10-17 15:45:43 Vice President Network Development Visit Ultrasound, Adc MfYessi Cutler [facility] 1.2840.114 350.1.13.10 4.2.7.2.686 [id number] [facility] 2020-10-17 08:08:54 2020-10-17 08:50:39 Routine Visit Adum, [facility] 1.2840.114 350.1.13.10 4.2.7.2.686 [id number] [facility] 2020-10-17 08:15:00 2020-10-17 08:15:00 Outpatient R ADUMTAMMI [facility] [id number] [facility] 2020-10-10 10:33:38 2020-10-10 11:50:53 Routine Visit Adum, Tammi [facility] 1.2.840.114 350.1.13.10 4.2.7.2.686 [id number] [facility] 2020-10-10 10:30:00 2020-10-10 10:30:00 Outpatient R ADUM, TAMMI [facility] [id number] [facility] 2020-10-10 00:00:00 2020-10-10 00:00:00 Orders Only Doctor Unassigned, [place] [facility] 1.2.840.114 350.1.13.10 4.2.7.2.686 [id number] [facility] 2020-10-03 08:09:13 2020-10-03 08:38:48 Routine Visit Adum, Tammi [facility]con [facility] 1.2.840.114 350.1.13.10 4.2.7.2.686 [id number] 134 [id number] [facility] 2020-10-03 08:15:00 2020-10-03 08:15:00 Outpatient R ADUM, TAMMI [facility] [id number] [facility] 2020-09-19 10:31:31 2020-09-19 11:05:26 Routine Visit Adum, Tammi Alarcon [facility] 1.2.840.114 350.1.13.10 4.2.7.2.686 [id number] [facility] 2020-09-19 10:30:00 2020-09-19 10:30:00 Outpatient R ADUM, TAMMI [facility] [id number] [facility] 2020-09-05 07:59:43 2020-09-05 08:57:48 Routine Visit Adum, Tammi Alarcon [facility] [place] [facility] 1.2.840.114 350.1.13.10 4.2.7.2.686 [id number] [facility] 2020-09-05 08:00:00 2020-09-05 08:00:00 Outpatient R ADUMTAMMI [facility] [id number] [facility] 2020-08-22 08:10:11 2020-08-22 09:02:34 Routine Visit Adum, Tammi Alarcon [facility] 1.2.840.114 350.1.13.10 4.2.7.2.686 [id number] [facility] 2020-08-22 08:15:00 2020-08-22 08:15:00 Outpatient R ADUMTAMMI [facility] [id number] [facility] 2020-08-12 11:30:00 2020-08-12 11:30:00 Outpatient R ADUMTAMMI [facility] [id number] [facility] 2020-08-12 10:15:00 2020-08-12 10:15:00 Outpatient R [facility] [id number] [facility] 2020-08-07 15:46:50 2020-08-07 16:44:57 Routine Visit Adum, Tammi Alarcon [facility] Building 1.2.840.114 350.1.13.10 4.2.7.2.686 [id number] [facility] 2020-08-07 16:00:00 2020-08-07 16:00:00 Outpatient R ADUM, TAMMI [facility] [id number] [facility] 2020-08-07 14:42:14 2020-08-07 14:57:14 [employer] President [employer] Development Visit 2, Adc Lab AdTammi mcintosh [facility] Building 1.2.840.114 350.1.13.10 4.2.7.2.686 [id number] [facility] 2020-07-15 08:17:32 2020-07-15 08:32:32 Telemedici ne Visit AdTammi mcintosh [facility] 1.2.840.114 350.1.13.10 4.2.7.2.686 [id number] [facility] 2020-07-15 08:00:00 2020-07-15 08:00:00 Outpatient R TAMMI MCDONOUGH [facility] [id number] [facility] 2020-06-17 08:03:41 2020-06-17 08:14:58 Telemedici ne Visit AdTammi mcintosh [facility] 1.2.840.114 350.1.13.10 4.2.7.2.686 [id number] [facility] 2020-06-17 08:00:00 2020-06-17 08:00:00 Outpatient R ADTAMMI MCINTOSH [facility] [id number] [facility] 2020-06-13 10:50:18 2020-06-13 11:50:18 Vice President Network Development Visit Ultrasound, [facility] Adrienne Ellis [facility] 1.2.840.114 350.1.13.10 4.2.7.2.686 [id number] [facility] 2020-06-13 11:00:00 2020-06-13 11:00:00 Outpatient P [facility] [id number] [facility] 2020-06-13 00:00:00 2020-06-13 00:00:00 Telephone AdumTammi [facility] 1.2.840.114 350.1.13.10 4.2.7.2.686 [id number] [facility] 2020-06-09 00:00:00 2020-06-09 00:00:00 Telephone Adum, Tammi Alarcon [facility] 1.2.840.114 350.1.13.10 4.2.7.2.686 [id number] [facility] 2020-05-28 00:00:00 2020-05-28 00:00:00 Patient Secure Msg Doctor Unassigned, [place] [facility] 1.2.840.114 350.1.13.10 4.2.7.2.686 [id number] [facility] 2020-05-28 00:00:00 2020-05-28 00:00:00 Telephone Adum, Tammi Alarcon [facility] 1.2.840.114 350.1.13.10 4.2.7.2.686 [id number] [facility] 2020-05-20 09:40:59 2020-05-20 09:55:59 Vice President Network Development Visit 2, Adc Lab Adum, Tammi [facility] 1.2.840.114 350.1.13.10 4.2.7.2.686 [id number] [facility] 2020-05-20 08:19:57 2020-05-20 09:11:49 Routine Visit Adum, Tammi Alarcon [facility] 1.2.840.114 350.1.13.10 4.2.7.2.686 [id number] [facility] 2020-05-20 08:15:00 2020-05-20 08:15:00 Outpatient R ADUM, TAMMI [facility] [id number] [facility] 2020-05-20 00:00:00 2020-05-20 00:00:00 Orders Only Doctor Unassigned, [place] [facility] 1.2.840.114 350.1.13.10 4.2.7.2.686 [id number] [facility] 2020-04-22 16:12:05 2020-04-22 16:27:05 Vice President Network Development Visit 2, Adc Lab AdumTammi [facility] 1.2.840.114 350.1.13.10 4.2.7.2.686 [id number] [facility] 2020-04-22 14:10:37 2020-04-22 15:54:02 Initial Visit AdTammi mcintosh [facility] 1.2.840.114 350.1.13.10 4.2.7.2.686 [id number] [facility] 2020-04-22 14:30:00 2020-04-22 14:30:00 Outpatient R ADUM, TAMMI [facility] [id number] [facility] 2020-04-22 00:00:00 2020-04-22 00:00:00 Orders Only Doctor Unassigned, [place] [facility] 1.2.840.114 350.1.13.10 4.2.7.2.686 [id number] [facility] 2020-01-27 00:00:00 2020-01-27 00:00:00 Patient Secure Msg Doctor Unassigned, [place] [facility] 1.2.840.114 350.1.13.10 4.2.7.2.686 [id number] [facility] 2020-01-25 00:00:00 2020-01-25 00:00:00 Patient Secure Msg Doctor Unassigned, [place] [facility] 1.2.840.114 350.1.13.10 4.2.7.2.686 [id number] [facility] 2020-01-25 00:00:00 2020-01-25 00:00:00 Telephone Nataliia Yuen Usman [facility] 1..840.114 350.1.13.10 4.2.7.2.686 [id number] [facility] 2020-01-24 14:21:54 2020-01-24 14:41:54 Laboratory Only Lab, Adc Fam Janb Derek Dam[facility] 1..840.114 350.1.13.10 4.2.7.2.686 [id number] [facility] 2020-01-24 14:20:00 2020-01-24 14:20:00 Outpatient R [facility] [id number] [facility] 2020-01-24 00:00:00 2020-01-24 00:00:00 Letter (Out) Doctor Unassigned, [place] [facility] 1..840.114 350.1.13.10 4.2.7.2.686 [id number] [facility] Results Test Description Test Time Test Comments Results Result Co mments Source [facility] MOLECULAR [id number] 22:28:27* Test Item Value Reference Range Interpretation Comme nts POCT Molecular Strep (test c ode = 81838-4) Positive Negative A Lab Interpretation (test cod e = 13795-4) Abnormal [facility] Molecular [id number] 22:20:30* Test Item Value Reference Range Interpretation Comme nts POCT Molecular FluA (test co de = 14299-3) Negative Negative POCT Molecular FluB (test co de = 08885-8) Negative Negative Lab Interpretation (test cod e = 45875-8) Normal [facility] Molecular [id number] 23:03:09* Test Item Value Reference Range Interpretation Comme nts POCT Molecular FluA (test co de = 95275-9) Negative Negative POCT Molecular FluB (test co de = 53320-2) Negative Negative Lab Interpretation (test cod e = 77489-8) Normal [facility] MOLECULAR [id number] 22:51:36* Test Item Value Reference Range Interpretation Comme nts POCT Molecular Strep (test c ode = 58805-1) Positive Negative A Lab Interpretation (test cod e = 15933-9) Abnormal [facility], [id number] 11:34:00* Test Item Value Reference Range Interpretation Comme nts HCG (test code = HCG) negative [facility] SARS-COV-2 ANTIGEN (BINAX NOW)2024-02-23 23:42:00* Test Item Value Reference Range Interpretation Comme nts POCT SARS-COV-2 ANTIGEN (test code = 03374-5) Not Detected Not Detected, See Comment On board controls acceptable with C Line (test code = 3574) Yes Lab Interpretation (test code = 32411-0) Normal [facility] MOLECULAR [id number] 23:33:58* Test Item Value Reference Range Interpretation Comme nts POCT Molecular Strep (test c ode = 96043-4) Positive Negative A Lab Interpretation (test cod e = 10376-1) Abnormal [facility]ious disease [id number] 00:00:00* Test Item Value Reference Range Interpretation Comme nts actinomyces israelii (test c ode = actinomyces israelii) 0.000 ppm 19.961-24.689 chlamydia trachomatis (test code = chlamydia trachomatis) 0.000 ppm 23.000-31.467 neisseria gonorrhoeae (test code = neisseria gonorrhoeae) 0.000 ppm 23.000-32.117 treponema pallidum (test cod e = treponema pallidum) 0.000 ppm 23.000-32.426 mycoplasma genitalium (test code = mycoplasma genitalium) 0.000 ppm 19.961-24.689 mycoplasma hominis (test cod e = mycoplasma hominis) 0.000 ppm 19.961-24.689 [facility], [id number] 13:10:00* Test Item Value Reference Range Interpretation Comme nts HCG (test code = HCG) negative [facility] Medical[facility] [id number] 04:03:00* Test Item Value Reference Range Interpretation Comme nts POCT PREG (test code = 1605) Negative On board controls acceptable with C Line (test code = 3574) Yes POCT PREG LOT # (test code = 3577) [id number] POCT PREG TEST DATE ( test code = 3576) 04/01/2024 Lab Interpretation (test cod e = 78528-3) Normal [facility] and Screen - ONCE [id number] 18:19:16 * Test Item Value Reference Range Interpretation Comme nts ABO & RH (test code = 20) O Positive Performed at [facility] [address] [place] [address] Free: [phone] No. [id number] IAT (test code = 1185) Negative Performed at [facility] Blood [address] Free: [phone] No. [id number] [facility] URINALYSIS W/O SPECIFIC [id number] 14:45:00* Test Item Value Reference Range Interpretation [...] Negati ve [facility] URINALYSIS W/O SPECIFIC [id number] 19:07:00* Test Item Value Reference Range Interpretation [...] = 3257) n/a Negative - Negati ve [facility] WITH [id number] 20:01:58* Test Item Value Reference Range Interpretation [...] 31.6 g/dL 31.6-35.1 RDW-SD (test code = 67973-6) 37.7 fL 39.0-49.9 L RDW-CV (test code = 788-0) 12.9 % 12.0-15.5 PLT (test code = 777-3) 303 See_Comment [Automated messa ge] The system which generated this result transmitted reference range: 166 - 358 10*3/?L. The reference range was not used to interpret this result as normal/abnormal. MPV (test code = 29204-2) 12.3 fL 9.5-12.9 NRBC/100 WBC (test code = 6985297444) 0.0 See_Comment [Automated [employer] ssage] The system which generated this result transmitted reference range: 0.0 - 10.0 /100 WBCs. The reference range was not used to interpret this result as normal/abnormal. NRBC x10^3 (test code = 1143571263) See_Comment [Automated messa ge] The system which generated this result transmitted reference range: 10*3/?L. The reference range was not used to interpret this result as normal/abnormal. GRAN MAT (NEUT) % (test code = 770-8) 64.3 % IMM GRAN % (test code = 7159952899) 0.50 % LYMPH % (test code = 736-9) 29.2 % MONO % (test code = 5905-5) 5.4 % EOS % (test code = 713-8) 0.2 % BASO % (test code = 706-2) 0.4 % GRAN MAT x10^3(ANC) (test code = 5794477681) 6.31 10*3/uL 1.88-7.09 IMM GRAN x10^3 (test code = 3386070946) 0.05 10*3/uL 0.00-0.06 LYMPH x10^3 (test code = 731-0) 2.87 10*3/uL 1.32-3.29 MONO x10^3 (test code = 742-7) 0.53 10*3/uL 0.33-0.92 EOS x10^3 (test code = 711-2) 0.03-0.39 L BASO x10^3 (test code = 704-7) 0.04 10*3/uL 0.01-0.07 Lab Interpretation (test code = 13102-5) Abnormal [facility] URINALYSIS W/O SPECIFIC [id number] 17:24:00* Test Item Value Reference Range Interpretation [...] = 3257) n/a Negative - Negati ve [facility] URINALYSIS W/O SPECIFIC [id number] 19:23:00* Test Item Value Reference Range Interpretation [...] = 3257) N/A Negative - Negati ve [facility] URINALYSIS W/O SPECIFIC [id number] 19:23:00* Test Item Value Reference Range Interpretation [...] = 3257) N/A Negative - Negati ve [facility] URINALYSIS W/O SPECIFIC [id number] 16:41:00* Test Item Value Reference Range Interpretation [...] = 3257) n/a Negative - Negati ve [facility] URINALYSIS W/O SPECIFIC [id number] 17:09:00* Test Item Value Reference Range Interpretation [...] = 3257) N/A Negative - Negati ve [facility] URINALYSIS W/O SPECIFIC [id number] 19:41:00* Test Item Value Reference Range Interpretation [...] = 3257) na Negative - Negati ve [facility] URINALYSIS W/O SPECIFIC [id number] 19:12:00* Test Item Value Reference Range Interpretation [...] = 3257) n/a Negative - Negati ve [facility] URINALYSIS W/O SPECIFIC [id number] 14:52:00* Test Item Value Reference Range Interpretation [...] Negati ve [facility] UR[facility] W/O SPECIFIC [id number] 16:04:00* Test Item Value Reference Range Interpretation [...] ve Lab Interpretation (test cod e = 15795-7) Abnormal [facility] Notes Date/Time Note Provider Source 2024-09-17 23:44:54 Pt given printed and verbal discharge instructions regarding pharyngitis. Prescription x2 sent to pharmacy Discussed antibiotic therapy and to take until all completed unless adverse reaction occurs - if occurs, discontinue medication and follow up with pcp/seek medical attention Pt verbalized understanding of instructions, pt awake alert oriented, resp reg unlabored, skin w/d, color appropriate for race, moves all ext well,pt encouraged to follow up with pcp and ENT. Advised to seek medical attention for new/prolonged/worsening of symptoms, Symptoms difficulty breathing, increased swelling of throat No adverse reaction to meds given in ER noted upon discharge Awake, alert oriented, resp reg unlabored, skin w/d, pt leaving ambulatory without assist, in no apparent distress, Leonor Daigle RN [facility] 2024-09-17 21:52:37 Pt called from lobby, no answer at this time [facility] 2024-09-17 21:50:45 Pt arrives ambulatory to ED c/o sore throat. She reports that she had strep about 2 weeks ago and completed abx. She says that it felt better and then a couple of days ago she started feeling pain again, so she came in to be seen. Also reports coughing. Bibiana Steiner RN [facility] 2023-06-18 15:49:00 Pt given printed and verbal discharge instructions regarding dental infection, encouraged hydration. Prescriptions provided. Discussed ibuprofen and to take with food to avoid GI distress. Discussed antibiotic therapy and to take until all completed unless adverse reaction occurs - if occurs, discontinue medication and follow up with pcp/seek medical attention. Pt verbalized understanding of instructions, pt awake alert oriented, resp reg unlabored, skin w/d, color appropriate for race, moves all ext well,pt encouraged to follow up with pcp and or dentist. Advised to seek medical attention for new/prolonged/worsening of symptoms. No adverse reaction to meds given in ER noted upon discharge. Awake, alert oriented, resp reg unlabored, skin w/d, pt leaving amb with steady gait, in no apparent distress. LUIS Snell RN [facility] 2023-06-18 14:53:47 Patient states: "I started having pain in my tooth (left lower) three days ago. [place] and a crown. They wanted to replace the crown at one point but they couldn't. I don't have insurance to see a dentist" LUIS Hatch RN [facility]
[2024-11-08] MEDS ORDERED: KETOROLAC 30 MG/ML INJ ONE (19:37)
[2024-11-08] MEDS ORDERED: NA CHLORIDE 0.9% 1,000 ML ONE (19:37)
[2024-11-08] MEDS ORDERED: ONDANSETRON 4 MG/2 ML VIAL ONE (19:37)
[2024-11-08 20:22] LABS: Absolute Lymphocytes (CBC) 2.7 K/uL (0.7-4.9); Absolute Monocytes 0.5 K/uL (0.1-1.3); Absolute Neutrophil 4.8 K/uL (1.8-8.0); Basophils % 0.4 % (0-1.3); Eosinophils % 0.2 % (0-4.4); Hematocrit 38.6 % (36.0-45.0); Hemoglobin 13.2 g/dL (12.0-15.0); Lymphocytes % 32.9 % (15.3-44.8); MCH 28.3 pg (27.0-35.0); MCHC 34.2 g/dL (32.0-36.0); MCV 82.8 fL (80-100); MPV 9.7 fL (7.6-11.3); Monocytes % 6.5 % (3.3-12.3); Nucleated Red Blood Cells % 0.1 % (0-0); Platelets 251 thou/uL (152-406); RBC Red Blood Cell Count 4.66 M/uL (3.86-4.86); Red Cell Distribution Width 14.7 % (12.1-15.2)
[2024-11-08 20:37] LABS: Albumin/Globulin Ratio 1.1 (1.1-1.8); Anion Gap 8.3 mEq/L (5.0-15.0); Bilirubin Total 0.4 mg/dL (0.2-1.0); Globulin 3.8 g/dL (2.3-3.5); Potassium 3.3 mEq/L (3.5-5.1); Protein, Total 7.8 g/dL (6.4-8.2)
[2024-11-08 22:01] LABS: Specific Gravity 1.005 (1.005-1.030)
[2024-11-08 22:09] LABS: Specific Gravity 1.005 (1.005-1.030); Urine Bacteria <20 /HPF (<20); Urine Bilirubin NEGATIVE (Negative); Urine Blood Negative (Negative); Urine Clarity Turbid (Clear); Urine Color Colorless (Yellow); Urine Culture Reflex Order NOT NEEDED; Urine Glucose TRACE (Negative); Urine Ketones NEGATIVE (Negative); Urine Microscopic Reflex YN ORDER UMIC; Urine Nitrite NEGATIVE (Negative); Urine Protein NEGATIVE (Negative); Urine RBC <5 /HPF (None Seen); Urine Urobilinogen Normal (Normal); Urine WBC <5 /HPF (<5)
--- NOTE | 2024-11-08 22:35 | RAD REPORT ---
EXAMINATION: CT Abdomen Pelvis W Contrast CLINICAL INDICATION: Female, 23 years old. ABD PAIN TECHNIQUE: CT abdomen and pelvis was performed, after the administration of IV contrast, as per [facility]. Axial, sagittal and coronal reconstructions were obtained. One or more of the following dose reduction techniques were used: Automated exposure control, adjustment of the mA and k V according to patient size, and iterative reconstruction. Unless otherwise specified, incidental findings do not require dedicated imaging follow-up. COMPARISON: No prior exam. FINDINGS: LOWER CHEST: The visualized lung bases are clear. LIVER: Normal in size and contour. No focal lesion. BILIARY SYSTEM: Gallbladder is contracted limiting evaluation. No suspicious abnormalities. SPLEEN: Normal size. No focal lesion. PANCREAS: No mass, ductal dilation, or sahil-pancreatic fluid. ADRENALS: Normal; no mass. KIDNEYS: Normal size and contour. No hydronephrosis. URINARY BLADDER: Unremarkable. GASTROINTESTINAL TRACT: No evidence of free air, significant intra-abdominal free fluid, bowel obstru ction or abscess. Mild free pelvic fluid, nonspecific APPENDIX: Normal appendix. LYMPH NODES: No lymphadenopathy. MUSCULOSKELETAL: No acute or suspicious osseous abnormality. ADDITIONAL FINDINGS: Abnormal orientation of the IUD, nearly transversely oriented, with the proximal end of its vertical limb directed towards the right cornu.. IMPRESSION: Intrauterine contraceptive device appears abnormally oriented, as described above. Trace free pelvic fluid, nonspecific. No other acute or concerning abnormalities seen in the abdomen or pelvis.
--- NOTE | 2024-11-08 22:46 | EDPHYS ---
Physician Documentation [facility] Name: Letitia Young Age: 23 yrs Sex: Female : 2000 Arrival Date: 11/08/2024 Time: 17:35 Bed 10 Private MD: ED Physician Lencho Goodwin HPI: 11/08 19:26 This 23 yrs old Female presents to ER via Ambulatory with complaints of Abdominal Pain, sb4 Nausea. 19:56 lower abdominal pain x 3 days. intermittent in nature with associated nausea. no sb4 vomiting, diarrhea, fever, chills, dysuria, vaginal bleeding. had an IUD placed 9 months ago, isn't sure if that is part of the problem. Historical: - Allergies: 18:41 No Known Allergies; cm10 - Home Meds: 18:41 None [Active]; cm10 - PMHx: 18:41 None; cm10 - PSHx: 18:41 None; cm10 - Immunization history:: Adult Immunizations up to date. - Infectious Disease History:: Denies. - Social history:: Smoking status: Patient denies any tobacco usage or history of. ROS: 19:56 Constitutional: Negative for fever, chills, and weight loss, sb4 19:56 Abdomen/GI: Positive for abdominal pain, nausea, 19:56 All other systems are negative, Exam: 19:56 Constitutional: This is a well developed, well nourished patient who is awake, alert, sb4 and in no acute distress. Head/Face: Normocephalic, atraumatic. Eyes: Extra-ocular motions intact. Periorbital areas with no swelling, redness, or edema. ENT: Mucous membranes moist. Cardiovascular: Regular rate and rhythm with a normal S1 and S2. Respiratory: No increased work of breathing, no retractions or nasal flaring. Skin: Warm, dry with normal turgor. Normal color with no rashes, no lesions, and no evidence of cellulitis. 19:56 Abdomen/GI: Inspection: abdomen appears normal, Bowel sounds: normal, Palpation: soft, mild abdominal tenderness, in the suprapubic area, Vital Signs: 18:40 BP 134 / 78; Pulse 106; Resp 15; Temp 98.6; Pulse Ox 97% on R/A; Weight 47.63 kg; cm10 Height 5 ft. 1 in. ; Pain 6/10; 18:40 Body Mass Index 19.84 (47.63 kg, 154.94 cm) cm10 18:40 Pain Scale: Adult cm10 MDM: 18:02 Medical Screening Exam initiated sb4 21:46 Differential diagnosis: appendicitis, Dysmenorrhea, Ectopic , Endometriosis, sb4 non-specific abd pain, urinary tract infection. 22:46 Data reviewed: vital signs, nurses notes, lab test result(s), radiologic studies, I sb4 have discussed the patient's presentation/case with the attending Emergency Department Physician; and as a result, I will discharge patient. Counseling: I had a detailed discussion with the patient and/or guardian regarding the historical points, exam findings, and any diagnostic results supporting the discharge/admit diagnosis, lab results, radiology results, the need for outpatient follow up, an OB/Gyne specialist, to return to the emergency department if symptoms worsen or persist or if there are any questions or concerns that arise at home. 11/08 18:46 Order name: CBC with Diff; Complete [facility]/08 18:46 Order name: CMP; Complete Time: 20:37 [facility] 11/08 18:46 Order name: Lipase; Complete Time: 20:37 [facility] 11/08 18:46 Order name: Test, Urine; Complete Time: 22:11 [facility] 11/08 18:46 Order name: UA Rfx Abner Cult if indicated; Complete Time: 22:11 [facility] 11/08 18:46 Order name: CT Abd/Pelvis - IV Contrast Only; Complete Time: 22:41 [facility] 11/08 18:46 Order name: IV Saline Lock; Complete Time: 21:28 [facility] 11/08 18:46 Order name: Labs collected and sent; Complete Time: 21:28 sb4 Administered Medications: 19:55 Drug: TORadol - Ketorolac IVP 15 mg IVP once Route: IVP; Site: right antecubital; br2 20:30 Follow up: Response: No adverse reaction br2 19:55 Drug: Ondansetron IVP 4 mg IVP once; over 2 minutes Route: IVP; Site: right antecubital;br2 20:30 Follow up: Response: No adverse reaction br2 19:55 Drug: NS 0.9% IV 1000 ml IV at 1 bolus Per protocol; to be given as a bolus over 60 br2 minutes Route: IV; Rate: 1 bolus; Site: right antecubital; 21:00 Follow up: Response: No adverse reaction; IV Status: Completed infusion; IV Intake: br2 1000ml Disposition Summary: 11/08/24 22:46 Discharge Ordered Notes: Location: Home sb4 Problem: new sb4 Symptoms: are unchanged sb4 Condition: Stable sb4 Diagnosis - Displacement of intrauterine contraceptive device, initial encounter sb4 Followup: sb4 - With: Gertrude Delvalle MD - When: As needed - Reason: Recheck today's complaints, Re-evaluation by your physician Discharge Instructions: - Discharge Summary Sheet sb4 - Intrauterine Device Information sb4 Forms: - Patient Portal Instructions sb4 - Leadership Thank You Letter sb4 Signatures: Dispatcher [employer] Ttaa Delcid PA-C PA-C sb4 Aimee Saleem RN RN cm10 Soo Smith RN RN br2 Corrections: (The following items were deleted from the chart) 18:41 18:41 PMHx: None; cm10 cm10 19:58 19:56 . sb4 sb4 22:47 22:46 Counseling: I had a detailed discussion with the patient and/or guardian sb4 regarding the historical points, exam findings, and any diagnostic results supporting the discharge/admit diagnosis, the presence of at least one elevated blood pressure reading (>120/80) during this emergency department visit, radiology results, the need for outpatient follow up, an OB/Gyne specialist, to return to the emergency department if symptoms worsen or persist or if there are any questions or concerns that arise at home, sb4
--- NOTE | 2024-11-08 22:46 | ER ---
Nurse's Notes [facility] Name: Letitia Young Age: 23 yrs Sex: Female : 2000 Arrival Date: 11/08/2024 Time: 17:35 Bed 10 Private MD: Diagnosis: Displacement of intrauterine contraceptive device, initial encounter Presentation: 11/08 18:40 Chief complaint: Patient states: Lower abdominal pain onset a few days ago. Pt also cm10 reports nausea. Coronavirus screen: Client denies travel out of the [place] in the last 14 days. Ebola Screen: Patient denies travel to an Ebola-affected area in the 21 days before illness onset. Initial Sepsis Screen: Does the patient meet any 2 criteria? HR > 90 bpm. Does the patient have a suspected source of infection? No. Patient's initial sepsis screen is negative. Risk Assessment: Do you want to hurt yourself or someone else? Patient reports no desire to harm self or others. Onset of symptoms was November 08, 2024. 18:40 Method Of Arrival: Ambulatory cm10 18:40 Acuity: SUBHASH 3 cm10 Triage Assessment: 18:41 General: Appears in no apparent distress. uncomfortable, Behavior is calm, cooperative. cm10 Neuro: No deficits noted. Level of Consciousness is awake, alert, obeys commands, Oriented to person, place, time, situation, Appropriate for age. Respiratory: No deficits noted. Airway is patent Respiratory effort is even, unlabored, Respiratory pattern is regular, symmetrical. GI: Reports lower abdominal pain, nausea. Historical: - Allergies: 18:41 No Known Allergies; cm10 - Home Meds: 18:41 None [Active]; cm10 - PMHx: 18:41 None; cm10 - PSHx: 18:41 None; cm10 - Immunization history:: Adult Immunizations up to date. - Infectious Disease History:: Denies. - Social history:: Smoking status: Patient denies any tobacco usage or history of. Screenin:56 [facility] ED Fall Risk Assessment (Adult) History of falling in the last 3 months, br2 including since admission No falls in past 3 months (0 pts) Confusion or Disorientation No (0 pts) Intoxicated or Sedated No (0 pts) Impaired Gait No (0 pts) Mobility Assist Device Used No (0 pt) Altered Elimination No (0 pt) Score/Fall Risk Level 0 - 2 = Low Risk Oriented to surroundings. Abuse screen: Denies threats or abuse. Denies injuries from another. Nutritional screening: No deficits noted. Tuberculosis screening: No symptoms or risk factors identified. Assessment: 19:56 Reassessment: Patient and/or family updated on plan of care and expected duration. Pain br2 level reassessed. Patient is alert, oriented x 3, equal unlabored respirations, skin warm/dry/pink. General: Appears in no apparent distress. comfortable, Behavior is calm, cooperative. Pain: Complains of pain in groin Pain does not radiate. Pain currently is 7 out of 10 on a pain scale. Pain began 2-3 days ago. : No signs and/or symptoms were reported regarding the genitourinary system. 22:00 Reassessment: No changes from previously documented assessment. Patient and/or family br2 updated on plan of care and expected duration. Pain level reassessed. Patient is alert, oriented x 3, equal unlabored respirations, skin warm/dry/pink. Patient states feeling better. Vital Signs: 18:40 BP 134 / 78; Pulse 106; Resp 15; Temp 98.6; Pulse Ox 97% on R/A; Weight 47.63 kg; cm10 Height 5 ft. 1 in. ; Pain 6/10; 18:40 Body Mass Index 19.84 (47.63 kg, 154.94 cm) cm10 18:40 Pain Scale: Adult cm10 ED Course: 17:39 Patient arrived in ED. im 17:58 [facility] sb4 17:58 Lencho Goodwin MD is Attending Physician. sb4 18:41 Triage completed. cm10 18:41 Arm band placed on right wrist. Patient placed in waiting room, Patient notified of cm10 wait time. 19:55 Soo Smith, STACY is Primary Nurse. br2 19:55 Inserted saline lock: 20 gauge in right antecubital area, using aseptic technique. br2 Blood collected. Flushed with 10 mL NS. 19:56 Patient has correct armband on for positive identification. Bed in low position. br2 Provided Education on:. 21:00 Radiology exam delayed due to lab results not completed at this time. (HCG) jc4 test not completed at this time. 21:26 Radiology exam delayed due to test not completed at this time. nj 21:28 Test, Urine Sent. br2 22:21 CT Abd/Pelvis - IV Contrast Only In Process Unspecified. EDMS 22:45 Gertrude Delvalle MD is Referral Physician. sb4 23:05 No provider procedures requiring assistance completed. br2 23:14 IV discontinued, intact, bleeding controlled, No redness/swelling at site. Pressure br2 dressing applied. Administered Medications: 19:55 Drug: TORadol - Ketorolac IVP 15 mg IVP once Route: IVP; Site: right antecubital; br2 20:30 Follow up: Response: No adverse reaction br2 19:55 Drug: Ondansetron IVP 4 mg IVP once; over 2 minutes Route: IVP; Site: right antecubital;br2 20:30 Follow up: Response: No adverse reaction br2 19:55 Drug: NS 0.9% IV 1000 ml IV at 1 bolus Per protocol; to be given as a bolus over 60 br2 minutes Route: IV; Rate: 1 bolus; Site: right antecubital; 21:00 Follow up: Response: No adverse reaction; IV Status: Completed infusion; IV Intake: br2 1000ml Intake: 21:00 IV: 1000ml; Total: 1000ml. br2 Outcome: 22:46 Discharge ordered by . sb4 23:14 Discharged to home ambulatory, br2 23:14 Condition: improved 23:14 Discharge instructions given to patient, Instructed on discharge instructions, follow up and referral plans. Demonstrated understanding of instructions, follow-up care, 23:15 Patient left the ED. br2 Signatures: Dispatcher [employer] EDMS Les Rice Sophia, PA-C PA-C sb4 Ashleigh Hobbs Clarissa, RN RN cm10 Soo Smith RN RN br2 Ben Barrett jc4 Corrections: (The following items were deleted from the chart) 18:41 18:41 PMHx: None; cm10 cm10
[2024-11-08 23:50] VITALS: BP 134/78; TEMP 98.6; O2SAT 97
== END 2024-11-08 23:15 | disposition home or self-care (01) ==
LOC: ER 17:35
DX: T83.32XA Displacement of intrauterine contraceptive device, initial encounter (principal)
CPT/HCPCS: 96361; 85025; 81001; 36415; 81025; 83690; 80053; 74177; 96375; 96374; 99284; Q9967; J2405; J7030